=== PATIENT | female | born 1950 | race Two or more races ===

== ENCOUNTER → 2017-04-03 | Outpatient (CLI) | payer OTHER ==
[~2017-04-03] MED LIST: ALBUAER3 IN; ASPI81TA27 PO; CLO01T OR; HYDR25TA4 PO; LISI-646 PO; PANT40TA2 PO
[2017-04-03 08:52] LABS: DEFINITIVE VIEW TRANSMISSION; Hematocrit 39.4 % (36.0-46.0); Hemoglobin 12.4 g/dL (12.2-16.2); Mean Corpuscular Hemoglobin 24.1 pg (28.0-32.0); Mean Corpuscular Hgb Conc. 31.5 g/dL (32.0-36.0); Mean Corpuscular Volume 76.6 fL (80.0-100.0); Mean Platelet Volume 9.9 fL (7.4-10.4); Platelet Count (auto) 227 10^3/uL (140-450); Red Cell Distribution Width 15.1 % (11.6-16.0); White Blood Cell 11.4 10^3/uL (4.4-10.8)
[2017-04-03 09:02] LABS: Metamyelocytes % 0; Myelocytes % 0; Promyelocytes % 0; Reactive Lymphocytes 0
[2017-04-03 09:04] LABS: Urine Bilirubin Negative (Negative); Urine Blood Negative /uL (Negative); Urine Color Yellow (Yellow); Urine Glucose Normal (Normal); Urine Ketone Negative (Negative); Urine Nitrite Negative (Negative); Urine RBC 1 /hpf (0 - 4); Urine Squamous Epithelial Cell FEW /hpf (<5); Urine Urobilinogen Normal (Negative); Urine pH 5.5 (5.0-8.0)
[2017-04-03 09:16] LABS: Potassium 3.8 mmol/L (3.5-5.1)
[2017-04-03 09:20] LABS: Albumin 3.8 g/dL (3.4-5.0); Calcium 8.9 mg/dL (8.5-10.1); Magnesium 2.1 mg/dL (1.6-2.6)
[2017-04-03 09:33] LABS: Bilirubin, Total 0.6 mg/dL (0.2-1.0); Total Protein 8.6 g/dL (6.4-8.2)
[2017-04-03 10:09] LABS: Hypochromia Slight; Platelet Estimate Adequate
== END | disposition home or self-care (01) ==
LOC: LAB 06:57
PROVIDERS: ATTEND Internal Medicine
DX: I10 Essential (primary) hypertension (principal); K21.9 Gastro-esophageal reflux disease without esophagitis; J47.9 Bronchiectasis, uncomplicated
CPT/HCPCS: 36415; 80053; 80061; 81001; 82043; 82306; 83735; 84439; 84443; 85007; 85027; 85652

== ENCOUNTER → 2018-02-16 | Outpatient (CLI) | payer OTHER | END | disposition home or self-care (01) | LOC: LAB 07:47 | PROVIDERS: ATTEND Internal Medicine | DX: H93.12 Tinnitus, left ear (principal); I10 Essential (primary) hypertension | CPT/HCPCS: 36415; 82565; 84520 ==

== ENCOUNTER → 2018-08-15 | Outpatient (CLI) | payer OTHER ==
[2018-08-15 07:52] LABS: Basophils # (auto) 0.1 uL; Basophils % (auto) 0.8 % (0.0-2.0); Eosinophils # (auto) 0.7 uL; Eosinophils % (auto) 7.9 % (0.0-7.0); Hemoglobin 13.3 g/dL (12.2-16.2); Lymphocytes # (auto) 3.7 uL; Lymphocytes % (auto) 39.5 % (10.0-50.0); Mean Corpuscular Hemoglobin 23.9 pg (28.0-32.0); Mean Corpuscular Hgb Conc. 31.5 g/dL (32.0-36.0); Mean Corpuscular Volume 75.7 fL (80.0-100.0); Monocytes # (auto) 0.9 uL; Monocytes % (auto) 9.8 % (0.0-12.0); Neutrophils # (auto) 3.9 uL; Platelet Count (auto) 193 10^3/uL (140-450); Red Blood Cells 5.55 10^6/uL (4.0-5.20); Red Cell Distribution Width 14.7 % (11.8-14.3); White Blood Cell 9.4 10^3/uL (4.4-10.8)
[2018-08-15 08:00] LABS: Urine Bacteria MOD /hpf (None Seen); Urine Blood Negative /uL (Negative); Urine Hyaline Cast FEW /lpf (0 - 2); Urine WBC 3 /hpf (0 - 5)
[2018-08-15 08:10] LABS: Albumin 3.9 g/dL (3.4-5.0); BUN/Creatinine Ratio 15.1; Potassium 3.8 mmol/L (3.5-5.1)
[2018-08-15 08:16] LABS: Bilirubin, Total 0.6 mg/dL (0.2-1.0); Total Protein 9.1 g/dL (6.4-8.2)
== END | disposition home or self-care (01) ==
LOC: LAB 07:21
PROVIDERS: ATTEND Internal Medicine
DX: I10 Essential (primary) hypertension (principal); E03.9 Hypothyroidism, unspecified; J44.9 Chronic obstructive pulmonary disease, unspecified; R73.01 Impaired fasting glucose; M81.0 Age-related osteoporosis without current pathological fracture
CPT/HCPCS: 36415; 80053; 80061; 81001; 82043; 82306; 83036; 84439; 84443; 85025; 85652

== ENCOUNTER → 2018-12-26 | Outpatient (CLI) | payer OTHER ==
[2018-12-26 08:51] LABS: Albumin 3.9 g/dL (3.4-5.0); Calcium 8.3 mg/dL (8.5-10.1)
[2018-12-26 08:55] LABS: BUN/Creatinine Ratio 14.9; Bilirubin, Total 0.5 mg/dL (0.2-1.0); Total Protein 8.6 g/dL (6.4-8.2); Uric Acid 4.6 mg/dL (2.6-6.0)
== END | disposition home or self-care (01) ==
LOC: LAB 08:16
PROVIDERS: ATTEND Internal Medicine
DX: I12.9 Hypertensive chronic kidney disease with stage 1 through stage 4 chronic kidney disease, or unspecified chronic kidney disease (principal); N18.3 Chronic kidney disease, stage 3 (moderate)
CPT/HCPCS: 36415; 80053; 83970; 84550

== ENCOUNTER 2019-04-21 15:40 | Emergency (ER) | payer OTHER ==
[~2019-04-21] VITALS: Ht 149.9 cm; Wt 45.4 kg
[2019-04-21 16:18] LABS: Urine Bacteria MANY /hpf (None Seen); Urine Blood Negative /uL (Negative); Urine Hyaline Cast FEW /lpf (0 - 2); Urine Specific Gravity 1.021 (1.001-1.035); Urine WBC 20 /hpf (0 - 5)
[2019-04-21 16:33] LABS: Hematocrit 35.1 % (36.0-46.0); Mean Corpuscular Hemoglobin 23.4 pg (28.0-32.0); Mean Corpuscular Hgb Conc. 31.4 g/dL (32.0-36.0); Mean Corpuscular Volume 74.6 fL (80.0-100.0); Platelet Count (auto) 148 10^3/uL (140-450); Red Blood Cells 4.71 10^6/uL (4.0-5.20); Red Cell Distribution Width 15.1 % (11.8-14.3); White Blood Cell 15.5 10^3/uL (4.4-10.8)
[2019-04-21 16:40] LABS: Albumin 3.3 g/dL (3.4-5.0); Calcium 8.4 mg/dL (8.5-10.1); Potassium 3.3 mmol/L (3.5-5.1)
[2019-04-21 16:46] LABS: BUN/Creatinine Ratio 16.7; Bilirubin, Total 0.6 mg/dL (0.2-1.0); Total Protein 7.6 g/dL (6.4-8.2)
[2019-04-21 17:15] LABS: Basophils % (manual) 0 (0.0-2.0); Blast Cells 0; Eosinophils % (manual) 0 (0-7); Metamyelocytes % 0; Myelocytes % 0; Promyelocytes % 0; Reactive Lymphocytes 0
[2019-04-21] MEDS ORDERED: SODIUM CHLORIDE 0.9% 1,000 ML IV ONE (17:34)
[2019-04-21] MEDS ORDERED: ONDANSETRON HCL 4 MG/2 ML VIAL IV ONE (17:45)
[2019-04-21] MEDS: MORPHINE SULFATE 4 MG/ML SYR/VIAL IV PRN ×2 (18:20→23:04)
[2019-04-21] MEDS ORDERED: POTASSIUM EFFERVESENT TAB 25 MEQ PO ONE (18:30)
[2019-04-21] MEDS ORDERED: cefTRIAXone 1GM/50ML D5W 50 ML IV ONE (18:30)
[2019-04-21 19:22] LABS: Alcohol, Urine < 3.0 mg/dL (0-5); Amphetamine Screen, Urine NEGATIVE (NEGATIVE); Barbiturate Scree,Urine NEGATIVE (NEGATIVE); Benzodiazephine Screen, Urine NEGATIVE (NEGATIVE); Cannabinoid Screen, Urine NEGATIVE (NEGATIVE); Cocaine Screen, Urine NEGATIVE (NEGATIVE); Opiate Scree,Urine NEGATIVE (NEGATIVE); Phencyclidine Screen, Urine NEGATIVE (NEGATIVE)
[2019-04-21 21:20] LABS: Band Neutrophils % (manual) 3; Lymphocytes % (manual) 8 (10.0-50.0); Monocytes % (manual) 4 (0-12)
[2019-04-21 23:24] VITALS: BP 125/63
== END 2019-04-21 23:36 | disposition short-term general hospital (02) ==
LOC: ER 15:42
DX: S32.029A Unspecified fracture of second lumbar vertebra, initial encounter for closed fracture (principal); E87.6 Hypokalemia; E87.1 Hypo-osmolality and hyponatremia; I10 Essential (primary) hypertension; N39.0 Urinary tract infection, site not specified; E46 Unspecified protein-calorie malnutrition; J44.9 Chronic obstructive pulmonary disease, unspecified
CPT/HCPCS: 36415; 71046; 72100; 72131; 80053; 80307; 81001; 83735; 83880; 84484; 85007; 85027; 93005; 94761; 96361; 96365; 96366; 96375; 99285; J0696; J2270; J2405

== ENCOUNTER 2019-08-08 10:10 | Inpatient (IN) | payer OTHER, MEDICAID ==
[~2019-08-08] VITALS: Ht 157.5 cm; Wt 52.1 kg
[~2019-08-08 10:10] MED LIST changes: +ASPI-404 PO; -ASPI81TA27 PO; +DOX100T PO; +IBAN1TAB2; +LOSA-39
[2019-08-08] MEDS ORDERED: methylPREDNISolone SOD SUCC 125 MG/2 ML VL IV ONE (10:45)
[2019-08-08] MEDS ORDERED: ALBUTEROL SULF 2.5 MG/0.5ML(0.5%) NEB SOLN HHN ONE (10:45)
[2019-08-08] MEDS ORDERED: IPRATROPIUM BROM 0.5 MG/2.5ML INH SOL HHN ONE (10:45)
[2019-08-08 11:26] LABS: Hemoglobin 10.3 g/dL (12.2-16.2); Mean Corpuscular Hemoglobin 22.8 pg (28.0-32.0); Mean Corpuscular Hgb Conc. 31.6 g/dL (32.0-36.0); Red Blood Cells 4.51 10^6/uL (4.0-5.20)
[2019-08-08 11:28] LABS: Hematocrit 32.5 % (36.0-46.0); Platelet Count (auto) 315 10^3/uL (140-450); White Blood Cell 11.5 10^3/uL (4.4-10.8)
[2019-08-08 11:48] LABS: Potassium 3.4 mmol/L (3.5-5.1)
[2019-08-08 11:56] LABS: Basophils % (manual) 0 (0.0-2.0); Blast Cells 0; Metamyelocytes % 0; Myelocytes % 0; Promyelocytes % 0; Reactive Lymphocytes 0
[2019-08-08 11:59] LABS: Albumin 3.6 g/dL (3.4-5.0); BUN/Creatinine Ratio 17.6; Bilirubin, Total 0.4 mg/dL (0.2-1.0); Calcium 8.7 mg/dL (8.5-10.1); Magnesium 2.4 mg/dL (1.6-2.6); Total Protein 9.4 g/dL (6.4-8.2)
[2019-08-08 12:23] LABS: Band Neutrophils % (manual) 5; Eosinophils % (manual) 1 (0-7); Lymphocytes % (manual) 10 (10.0-50.0); Monocytes % (manual) 6 (0-12)
[2019-08-08] MEDS ORDERED: PROMETHAZINE HCL 25 MG/ML 1ML IV PRN (13:00)
[2019-08-08] MEDS ORDERED: MORPHINE SULFATE 4 MG/ML SYR/VIAL IV PRN (13:00)
[2019-08-08] MEDS ORDERED: DEXTROSE (50%) 50ML SYRG IV PRN (13:00)
[2019-08-08] MEDS ORDERED: NITROGLYCERIN 0.4 MG SL TAB SL PRN (13:00)
[2019-08-08] MEDS ORDERED: TEMAZEPAM 15 MG CAP PO PRN (13:00)
[2019-08-08] MEDS ORDERED: ACETAMINOPHEN 500 MG TAB PO PRN (13:00)
[2019-08-08] MEDS ORDERED: MORPHINE SULF INJ 2 MG/ML SYRINGE 1ML IV PRN (13:00)
[2019-08-08] MEDS ORDERED: LACTULOSE 20Gm/30ML SOLN PO PRN (13:00)
[2019-08-08] MEDS ORDERED: ALBUTEROL SULF 2.5 MG/0.5ML(0.5%) NEB SOLN NEB PRN (13:00)
[2019-08-08] MEDS ORDERED: HYDROcodone-ACET 5/325MG TAB PO PRN (13:00)
[2019-08-08] MEDS ORDERED: CLO01T PO ×2 (13:29)
[2019-08-08] MEDS ORDERED: CLON0.2T PO (13:29)
[2019-08-08] MEDS ORDERED: LEVO25TA6 PO (13:29)
[2019-08-08] MEDS ORDERED: AMLO10TA13 PO (13:29)
[2019-08-08] MEDS ORDERED: OMEP20TA PO (13:29)
[2019-08-08] MEDS ORDERED: CARVEDILOL 3.125 MG TAB PO ONE (13:30)
[2019-08-08] MEDS ORDERED: FUROSEMIDE 40 MG/4 ML VIAL IV ONE (13:30)
[2019-08-08] MEDS ORDERED: ENOXAPARIN SOD 40 MG/0.4 ML SYRINGE SC ONE (13:30)
[2019-08-08] MEDS ORDERED: POTASSIUM CHL 20 Meq TABLET PO ONE (13:30)
[2019-08-08] MEDS ORDERED: LEVOFLOXACIN 500MG 100 ML IV ONE (13:30)
[2019-08-08] MEDS ORDERED: POTASSIUM EFFERVESENT TAB 25 MEQ PO ONE (13:30)
[2019-08-08] MEDS ORDERED: ENALAPRIL MALEATE 2.5 MG TAB PO ONE (13:30)
[2019-08-08] MEDS ORDERED: ASPirin 81 mg TAB PO ONE (13:30)
[2019-08-08] MEDS ORDERED: methylPREDNISolone SOD SUCC 40 MG/ML VL IV ONE (13:30)
[2019-08-08] MEDS ORDERED: PANTOPRAZOLE 40 MG TAB PO ONE (13:30)
--- NOTE | 2019-08-08 13:52 | NUR ---
RECEIVED REPORT FROM CHERELLE POLANCO.
--- NOTE | 2019-08-08 14:30 | NUR ---
Telemetry admit from ER JON BRADY admitted to Telemetry unit after SBAR received. Patient oriented to MICHELLE MÉNDEZ, primary RN, unit, room, bed, and unit policies regarding patient care and visiting hours. Patient now on continuous telemetry monitoring, tele box # 75 and telemetry reading on arrival to unit is SINUS TACHYCARDIA AT 100. Patient placed on bedside oxygen, weighed by bedscale and encouraged to call if they need something. All questions and concerns addressed, patient verbalized understanding.
[2019-08-08] MEDS: SODIUM CHLOR 0.9% PF (SALINE LOCK) 10ML VIAL/SYR IV SCH ×4 (15:37→21:43)
[2019-08-08 17:16] VITALS: BP 140/68
[2019-08-08] MEDS: ACCU-CHEK COMFORT CURVE STRIP VI SCH ×2 (17:29→22:13)
[2019-08-08 17:37] VITALS: BP 140/68
[2019-08-08] MEDS: IPRATROPIUM BROM 0.5 MG/2.5ML INH SOL NEB SCH (17:43)
[2019-08-08] MEDS: ALBUTEROL SULF 2.5 MG/0.5ML(0.5%) NEB SOLN NEB SCH (17:43)
[2019-08-08] MEDS: methylPREDNISolone SOD SUCC 40 MG/ML VL IV SCH ×2 (18:25→23:54)
[2019-08-08 19:34] VITALS: BP 140/68
[2019-08-08] MEDS: CARVEDILOL 3.125 MG TAB PO SCH (21:42)
[2019-08-08 22:00] VITALS: BP 113/51
[2019-08-09] MEDS: IPRATROPIUM BROM 0.5 MG/2.5ML INH SOL NEB SCH ×4 (00:10→19:41)
[2019-08-09] MEDS: ALBUTEROL SULF 2.5 MG/0.5ML(0.5%) NEB SOLN NEB SCH ×4 (00:10→19:42)
[2019-08-09 05:24] VITALS: BP 114/53
[2019-08-09] MEDS: SODIUM CHLOR 0.9% PF (SALINE LOCK) 10ML VIAL/SYR IV SCH ×6 (06:00→21:34)
[2019-08-09] MEDS: methylPREDNISolone SOD SUCC 40 MG/ML VL IV SCH ×3 (06:30→18:43)
[2019-08-09 06:55] LABS: Eosinophils # (auto) 0 uL; Hemoglobin 9.4 g/dL (12.2-16.2)
[2019-08-09] MEDS: LEVOTHYROXINE SODIUM 25 MCG TAB PO SCH (06:59)
[2019-08-09] MEDS: ACCU-CHEK COMFORT CURVE STRIP VI SCH ×4 (07:00→22:11)
[2019-08-09 07:01] LABS: Basophils # (auto) 0.1 uL; Basophils % (auto) 1.2 % (0.0-2.0); Hematocrit 29.2 % (36.0-46.0); Lymphocytes # (auto) 0.7 uL; Lymphocytes % (auto) 9.3 % (10.0-50.0); Mean Corpuscular Hemoglobin 23.1 pg (28.0-32.0); Mean Corpuscular Hgb Conc. 32.1 g/dL (32.0-36.0); Mean Corpuscular Volume 71.8 fL (80.0-100.0); Monocytes # (auto) 0.3 uL; Monocytes % (auto) 3.8 % (0.0-12.0); Neutrophils # (auto) 6.4 uL; Neutrophils % (auto) 85.7 % (37.0-80.0); Nucleated Red Blood Cells % 0.1 %; Platelet Count (auto) 256 10^3/uL (140-450); Red Blood Cells 4.06 10^6/uL (4.0-5.20); White Blood Cell 7.5 10^3/uL (4.4-10.8)
[2019-08-09 07:11] LABS: Albumin 2.9 g/dL (3.4-5.0); Calcium 7.9 mg/dL (8.5-10.1); Potassium 4.9 mmol/L (3.5-5.1)
[2019-08-09 07:16] LABS: BUN/Creatinine Ratio 19.6; Bilirubin, Total 0.4 mg/dL (0.2-1.0); Total Protein 7.6 g/dL (6.4-8.2)
--- NOTE | 2019-08-09 08:00 | NUR ---
Opening Shift Note Assumed care of patient, awake, alert, and oriented. No S/S of distress/SOB or pain. Bed in low/locked position, bed rails up x2. Instructed on POC and to call for assist PRN with call light within reach. Will continue to monitor for changes Q1hr and PRN.
[2019-08-09] MEDS ORDERED: ADENOSINE 44 MG in GIVE UN-DILUTED 0 ML IV STA (08:39)
[2019-08-09 09:24] VITALS: BP 117/53
[2019-08-09] MEDS ORDERED: POTASSIUM CHL 20 Meq TABLET PO SCH (10:00)
[2019-08-09] MEDS ORDERED: FUROSEMIDE 40 MG/4 ML VIAL IV SCH (10:00)
[2019-08-09] MEDS ORDERED: ENALAPRIL MALEATE 2.5 MG TAB PO SCH (10:00)
[2019-08-09] MEDS: CARVEDILOL 3.125 MG TAB PO SCH ×2 (10:00→21:34)
[2019-08-09] MEDS: LEVOFLOXACIN 750MG 150 ML IV SCH (10:08)
[2019-08-09] MEDS: ASPirin 81 mg TAB PO SCH (10:09)
[2019-08-09] MEDS: amLODIPine BESYLATE 5 MG TAB PO SCH (10:10)
[2019-08-09] MEDS: PANTOPRAZOLE 40 MG TAB PO SCH (10:10)
[2019-08-09] MEDS: LISINOPRIL 20 MG TAB PO SCH (10:10)
[2019-08-09] MEDS: ENOXAPARIN SOD 40 MG/0.4 ML SYRINGE SC SCH (10:11)
--- NOTE | 2019-08-09 10:40 | NUR ---
MD ROUNDS DR MELO AT BEDSIDE DISCUSSING POC WITH APTIENT AND PRIMARY RN. ALL QUESTIONS/CONCERNS ANSWERED. NEW ORDERS RECEIVED/CARRIED OUT. WILL CONTINUE TO MONITOR
--- NOTE | 2019-08-09 11:22 | NUR ---
LAB INFLUENZA SWAB SENT TO LABORATORY
[2019-08-09 13:00] VITALS: BP 115/66
[2019-08-09 22:00] VITALS: BP 104/45
[2019-08-10] MEDS: methylPREDNISolone SOD SUCC 40 MG/ML VL IV SCH ×4 (00:26→23:06)
[2019-08-10] MEDS: IPRATROPIUM BROM 0.5 MG/2.5ML INH SOL NEB SCH ×4 (00:46→19:23)
[2019-08-10] MEDS: ALBUTEROL SULF 2.5 MG/0.5ML(0.5%) NEB SOLN NEB SCH ×4 (00:46→19:23)
[2019-08-10 05:00] VITALS: BP 121/67
[2019-08-10] MEDS: SODIUM CHLOR 0.9% PF (SALINE LOCK) 10ML VIAL/SYR IV SCH ×6 (06:06→23:07)
[2019-08-10] MEDS: LEVOTHYROXINE SODIUM 25 MCG TAB PO SCH (06:16)
[2019-08-10] MEDS: ACCU-CHEK COMFORT CURVE STRIP VI SCH ×4 (06:31→23:07)
--- NOTE | 2019-08-10 07:50 | NUR ---
Opening Shift Note Assumed care of patient, awake and alert. No S/S of distress/SOB or pain. Instructed on POC and to call for assist PRN, will continue to monitor for changes Q1hr and PRN.
[2019-08-10 08:30] VITALS: BP 106/46
[2019-08-10] MEDS: ENOXAPARIN SOD 40 MG/0.4 ML SYRINGE SC SCH (09:57)
[2019-08-10] MEDS: PANTOPRAZOLE 40 MG TAB PO SCH (09:57)
[2019-08-10] MEDS: ASPirin 81 mg TAB PO SCH (09:57)
[2019-08-10] MEDS: CARVEDILOL 3.125 MG TAB PO SCH ×2 (10:00→23:05)
[2019-08-10] MEDS: LISINOPRIL 20 MG TAB PO SCH (10:00)
[2019-08-10] MEDS: amLODIPine BESYLATE 5 MG TAB PO SCH (10:00)
--- NOTE | 2019-08-10 11:30 | NUR ---
Visitor at bedside.
[2019-08-10 12:30] VITALS: BP 122/61
[2019-08-10 16:56] VITALS: BP 119/53
--- NOTE | 2019-08-10 17:00 | NUR ---
PT Patient ambulating with physical therapist.
--- NOTE | 2019-08-10 19:23 | NUR ---
RT NOTE PT WAS SEEN BY RT FOR HHN TX. PT TOLERATES WELL VIA MASK. PT REQUESTS THAT HHN BE CLEANED PRIOR TO TX. NO ADVERSE REACTION NOTED. CONT ORDERED Addendum: 08/10/19 at 1926 by Thelma Hayes RT Amended: Links added.
[2019-08-10 22:00] VITALS: BP 116/63
--- NOTE | 2019-08-11 00:36 | NUR ---
RT NOTE PT WAS SEEN BY RT FOR HHN TX. PT TOLERATES WELL VIA MASK. CONT ORDERED Addendum: 08/11/19 at 0054 by Thelma Hayes RT Amended: Links added.
[2019-08-11] MEDS: ALBUTEROL SULF 2.5 MG/0.5ML(0.5%) NEB SOLN NEB SCH ×4 (00:41→19:08)
[2019-08-11] MEDS: IPRATROPIUM BROM 0.5 MG/2.5ML INH SOL NEB SCH ×4 (00:41→19:08)
[2019-08-11 05:00] VITALS: BP 133/64
[2019-08-11 05:55] LABS: BUN/Creatinine Ratio 29.9; Potassium 3.7 mmol/L (3.5-5.1)
[2019-08-11] MEDS: methylPREDNISolone SOD SUCC 40 MG/ML VL IV SCH ×2 (06:28→22:15)
[2019-08-11] MEDS: SODIUM CHLOR 0.9% PF (SALINE LOCK) 10ML VIAL/SYR IV SCH ×6 (06:28→22:00)
[2019-08-11] MEDS: LEVOTHYROXINE SODIUM 25 MCG TAB PO SCH (06:29)
[2019-08-11] MEDS: ACCU-CHEK COMFORT CURVE STRIP VI SCH ×4 (06:30→22:15)
[2019-08-11 08:30] VITALS: BP 122/71
--- NOTE | 2019-08-11 08:30 | NUR ---
OPENING NOTE ASSUMED CARE OF PT. AWAKE AND ALERT. NO S/S SOB/DISTRESS NOTED. SAFETY PRECAUTIONS IN PLACE. BED SET TO LOWEST POSITION/LOCKED, BEDSIDE RAILS UP X2, CALL LIGHT WITHIN REACH. INSTRUCTED PATIENT TO CALL FOR ASSISTANCE. . UPDATED ON POC. PT VERBALIZED UNDERSTANDING. WILL CONTINUE TO MONITOR Q1HR AND PRN.
--- NOTE | 2019-08-11 09:00 | NUR ---
ENDORSED CARE TO CHERELLE LUNDBERG.
--- NOTE | 2019-08-11 09:30 | NUR ---
OPENING NOTE ASSUMED CARE OF PATIENT. AWAKE,ALERT AND ORIENTED. NO S/S SOB/DISTRESS NOTED. SAFETY PRECAUTIONS IN PLACE. BED SET TO LOWEST POSITION BREAKS LOCKED, BEDSIDE RAILS UP X2, CALL LIGHT WITH IN REACH. INSTRUCTED PATIENT TO CALL FOR ASSISTANCE. UPDATED ON POC. PT VERBALIZED UNDERSTANDING. WILL CONTINUE TO MONITOR Q1HR AND PRN.
[2019-08-11] MEDS: LISINOPRIL 20 MG TAB PO SCH (10:00)
[2019-08-11] MEDS: PANTOPRAZOLE 40 MG TAB PO SCH (11:13)
[2019-08-11] MEDS: CARVEDILOL 3.125 MG TAB PO SCH ×2 (11:14→22:14)
[2019-08-11] MEDS: amLODIPine BESYLATE 5 MG TAB PO SCH (11:16)
[2019-08-11] MEDS: ASPirin 81 mg TAB PO SCH (11:17)
[2019-08-11] MEDS: ENOXAPARIN SOD 40 MG/0.4 ML SYRINGE SC SCH (11:17)
[2019-08-11] MEDS: LEVOFLOXACIN 750MG 150 ML IV SCH (11:19)
[2019-08-11 12:30] VITALS: BP_SYST 126; BP_SYST 131; BP_SYST 136; BP_DIAS 66; BP_DIAS 74; BP_DIAS 81
--- NOTE | 2019-08-11 12:45 | NUR ---
Nutrition Assessment Notes please see attached link for complete assessment Est. Needs BW 52 [id number] kcal (25-30 kcal/kgBW), 41-52 gms pro (0.8-1.0 gms/kgBW r/t elev RFT). Will continue to monitor pertinent labs and reassess nutrient need prn Addendum: 08/11/19 at [address] Amended: Links added.
--- NOTE | 2019-08-11 19:07 | NUR ---
OPENING NOTE ASSUMED CARE OF PATIENT. AWAKE,ALERT AND ORIENTED. NO S/S SOB/DISTRESS NOTED. SAFETY PRECAUTIONS IN PLACE. BED SET TO LOWEST POSITION BREAKS LOCKED, BEDSIDE RAILS UP X2, CALL LIGHT WITH IN REACH. INSTRUCTED PATIENT TO CALL FOR ASSISTANCE. UPDATED ON POC. PT VERBALIZED UNDERSTANDING. WILL CONTINUE TO MONITOR Q1HR AND PRN. Addendum: 08/11/19 at 1909 by TOÑO KIRK RN RN WRONG TIME
--- NOTE | 2019-08-11 19:30 | NUR ---
Opening Shift Note Assumed care of patient, alert and oriented x 4. No S/S of distress/SOB or pain. On 2L oxygen via nasal cannula, ambulatory with walker at bedside. Bed in lowest locked position, side rails up x 2, call light within reach. Instructed on POC and to call for assist PRN, will continue to monitor for changes Q1hr and PRN.
[2019-08-11 20:00] VITALS: BP 127/85
[2019-08-11 22:00] VITALS: BP 127/85
[2019-08-12] VITALS (7 sets, daily range): BP systolic 104–140; BP diastolic 54–76
[2019-08-12] MEDS: IPRATROPIUM BROM 0.5 MG/2.5ML INH SOL NEB SCH ×4 (00:55→22:07)
[2019-08-12] MEDS: ALBUTEROL SULF 2.5 MG/0.5ML(0.5%) NEB SOLN NEB SCH ×5 (00:55→22:07)
--- NOTE | 2019-08-12 00:55 | NUR ---
Respiratory note: PT REFUSED SCHED MED NEB TX. PT SHOWS NO S/S OF SOB OR RESPIRATORY DISTRESS. INFORMED PT TO CONTACT RESPIRATORY IF SHE CHANGES HER MIND. WILL CONTINUE TO MONITOR.
--- NOTE | 2019-08-12 02:15 | NUR ---
IV insertion for stress test IV access obtained, via clean sterile technique by inserting 20 gauge catheter at Lt wrist after 1 attempt. IV secured properly. No trauma to site. Patient tolerated well.
[2019-08-12 05:39] LABS: Basophils # (auto) 0.1 uL; Eosinophils # (auto) 0 uL; Eosinophils % (auto) 0.1 % (0.0-7.0); Mean Corpuscular Volume 72.6 fL (80.0-100.0); Monocytes # (auto) 0.4 uL; Neutrophils # (auto) 5.1 uL; Nucleated Red Blood Cells % 0.1 %
[2019-08-12 05:42] LABS: Basophils % (auto) 0.9 % (0.0-2.0); Hematocrit 33.8 % (36.0-46.0); Hemoglobin 10.3 g/dL (12.2-16.2); Lymphocytes # (auto) 0.4 uL; Mean Corpuscular Hemoglobin 22.2 pg (28.0-32.0); Mean Corpuscular Hgb Conc. 30.6 g/dL (32.0-36.0); Monocytes % (auto) 7.2 % (0.0-12.0); Neutrophils % (auto) 85.8 % (37.0-80.0); Platelet Count (auto) 261 10^3/uL (140-450); Red Blood Cells 4.65 10^6/uL (4.0-5.20); Red Cell Distribution Width 17.9 % (11.8-14.3)
[2019-08-12 05:48] LABS: BUN/Creatinine Ratio 33.3
[2019-08-12] MEDS: SODIUM CHLOR 0.9% PF (SALINE LOCK) 10ML VIAL/SYR IV SCH ×6 (06:00→21:32)
[2019-08-12] MEDS: LEVOTHYROXINE SODIUM 25 MCG TAB PO SCH (07:29)
[2019-08-12] MEDS: ACCU-CHEK COMFORT CURVE STRIP VI SCH ×4 (07:29→21:44)
--- NOTE | 2019-08-12 08:53 | NUR ---
Opening Shift Note Assumed care of patient, awake and alert. No S/S of distress/SOB or pain. Patient NPO for a stress test , no s/s of hyperglycemia or hypoglycemia noted. Instructed on POC and to call for assist PRN, will continue to monitor for changes Q1hr and PRN.
[2019-08-12] MEDS: ASPirin 81 mg TAB PO SCH (10:37)
[2019-08-12] MEDS: ENOXAPARIN SOD 40 MG/0.4 ML SYRINGE SC SCH (10:37)
[2019-08-12] MEDS: methylPREDNISolone SOD SUCC 40 MG/ML VL IV SCH (10:37)
[2019-08-12] MEDS: PANTOPRAZOLE 40 MG TAB PO SCH (10:37)
[2019-08-12] MEDS: CARVEDILOL 3.125 MG TAB PO SCH ×2 (10:40→21:45)
[2019-08-12] MEDS: amLODIPine BESYLATE 5 MG TAB PO SCH (10:40)
[2019-08-12] MEDS: LISINOPRIL 20 MG TAB PO SCH (10:41)
[2019-08-12] MEDS ORDERED: predniSONE 20 MG TAB PO ONE (13:00)
--- NOTE | 2019-08-12 14:28 | NUR ---
assessment Patient is a 69 year old female who is alert and oriented. Patients cognitive abilities are intact. Prior to admission patient lived home with a friend and functioned independently. Patient informed me she is able to care for her own ADLs. Per patient she is requesting resources for room and boards. [facility] will provide patient with resources. Patient informed me she is mad at her friend. Patient informed me she and friend got into an argument. Patient informed me she will move on the 3rd of next month. Patient is requesting a fww that folds. Patient informed me she has a fww for home use. Patients PCP is Dr Hernandez. I informed patient she has a right to speak to a social security benefits interviewer regarding all care. I informed patient she has a right to participate in any and all discharge planning. Patient does not have a POA and advanced directive. I have offered patient information on POA and advanced directives. I informed the patient the advantages and benefits of having an Advanced Directive. Patient verbalized understanding and agreed to discharge plan. Addendum: 08/13/19 at 1444 by Alma Rosa CABALLERO Amended: Links added.
--- NOTE | 2019-08-12 16:32 | NUR ---
D/C Planning Per consult for room and board. Per Alma Rosa Pt will be returning home with friend. Resources for Board and care in the [facility] where given to Pt at bedside ( [facility], [facility], [facility] , [facility] , [facility], and [facility]). Addendum: 08/12/19 at 1640 by RASHID ARDON Pt verbalize understanding d/c plan.
--- NOTE | 2019-08-12 19:30 | NUR ---
Opening Shift Note Assumed care of patient, awake and alert. No S/S of distress/SOB or pain. Walker within reach. Instructed on POC and to call for assist PRN. Patient verbalizes understanding. Will continue to monitor for changes Q1hr and PRN.
[2019-08-12] MEDS: BUDESONIDE (INHALATION) 0.5 MG/2 ML NEB NEB SCH (22:07)
--- NOTE | 2019-08-12 22:25 | NUR ---
PATIENT AMBULATES TO RESTROOM INDEPENDENTLY. WALKER AT BED SIDE, HOWEVER PATIENT STATES SHE ONLY USES WALKER FOR "WALKING FAR". PATIENT ENCOURAGED TO USE CALL LIGHT FOR ASSISTANCE NEEDED. PATIENT VERBALIZES UNDERSTANDING.
[2019-08-13 05:00] VITALS: BP 116/59
[2019-08-13] MEDS: SODIUM CHLOR 0.9% PF (SALINE LOCK) 10ML VIAL/SYR IV SCH ×4 (05:47→13:55)
[2019-08-13] MEDS: ACCU-CHEK COMFORT CURVE STRIP VI SCH ×2 (06:34→11:30)
[2019-08-13] MEDS: LEVOTHYROXINE SODIUM 25 MCG TAB PO SCH (06:34)
[2019-08-13] MEDS: ALBUTEROL SULF 2.5 MG/0.5ML(0.5%) NEB SOLN NEB SCH ×3 (06:54→13:31)
[2019-08-13] MEDS: IPRATROPIUM BROM 0.5 MG/2.5ML INH SOL NEB SCH ×2 (06:55→13:31)
[2019-08-13] MEDS: BUDESONIDE (INHALATION) 0.5 MG/2 ML NEB NEB SCH (06:55)
--- NOTE | 2019-08-13 07:55 | NUR ---
Patient sitting in bed, awake, oriented x4, no acute distress noted. Patient stated her friend Ondina will pick her up on discharge.
[2019-08-13 09:00] VITALS: BP 126/61
[2019-08-13] MEDS ORDERED: predniSONE 20 MG TAB PO SCH (10:00)
--- NOTE | 2019-08-13 10:18 | NUR ---
Dr. Torres came over. to discharge the patient today.
[2019-08-13] MEDS: amLODIPine BESYLATE 5 MG TAB PO SCH (10:21)
[2019-08-13] MEDS: PANTOPRAZOLE 40 MG TAB PO SCH (10:22)
[2019-08-13] MEDS: ASPirin 81 mg TAB PO SCH (10:23)
[2019-08-13] MEDS: CARVEDILOL 3.125 MG TAB PO SCH (10:24)
[2019-08-13] MEDS: LISINOPRIL 20 MG TAB PO SCH (10:25)
[2019-08-13 10:34] VITALS: BP 126/61
--- NOTE | 2019-08-13 12:28 | NUR ---
Dr. Torres called back. said the patient needs a walker before discharge, the Distribution Agent is waiting for it.
[2019-08-13 12:54] VITALS: BP 137/63
--- NOTE | 2019-08-13 13:15 | NUR ---
Paged the Retail Client Solutions Analyst.
--- NOTE | 2019-08-13 13:19 | NUR ---
Cancer Program Consultant Taylor Mckinney called back. Taylor to call the Cattyman regarding the walker before discharge as ordered by Dr. Torres.
--- NOTE | 2019-08-13 13:25 | NUR ---
Casino Floor Walker Taylor called back that the Aquatics Manager already requested the walker, to be delivered at bedside before discharge.
--- NOTE | 2019-08-13 13:32 | NUR ---
Respiratory note: PT REFUSING SCHEDULED MED NEB TX, STATES HE DOESN'T NEED IT AND THAT SHE IS GOING HOME. PT NOTED TO BE DRESSED SITTING IN BED WITH BELONGINGS PACKED. NO DISTRESS NOTED. HR 71 RR 16 SPO2 95% ON RA. PT AND RN AWARE TO HAVE RT PAGED IF NEEDED.
--- NOTE | 2019-08-13 14:52 | NUR ---
Stitchdown Thread Laster Alma Rosa called back. Alma Rosa said patient does not qualify for a new walker.
--- NOTE | 2019-08-13 14:54 | NUR ---
Paged Dr. Torres. Waiting for MD to call back.
--- NOTE | 2019-08-13 14:55 | NUR ---
Dr. Torres called back. is aware the patient did not qualify for a new walker. Dr. Torres ordered to discharge the patient.
--- NOTE | 2019-08-13 14:56 | NUR ---
Discharge instructions given as ordered. Encourage to follow up with PMD as instructed. All questions and concerns addressed. Patient verbalized understanding. Medication reconciliation form completed and copy given to patient. IV removed with catheter intact, pressure dressing applied. Telemetry unit returned to ICU. Patient is ambulatory, steady gait noted, refused to be taken to vehicle via wheelchair, patient with all personal belongings, accompanied by her friend Ondina. No distress noted at time of departure.
--- NOTE | 2019-08-13 17:10 | NUR ---
D/C Planning Per SS consult for FWW. Pt received a FWW on May 20 2019 and does not qualify for another one. Pt was informed at bedside. Pt stated she just wanted a new one. Advised Pt FWW is given one every 5 years and because she just recently received one we are unable to provide her with one. Pt verbalize understanding. Informed SS Oliveriorene
== END 2019-08-13 15:00 | disposition home or self-care (01) | DRG 189 ==
LOC: ER 10:10 → TELE-WESTW 10:11
PROVIDERS: ADMIT Internal Medicine; ATTEND Internal Medicine
DX: J96.01 Acute respiratory failure with hypoxia (principal); I21.4 Non-ST elevation (NSTEMI) myocardial infarction; J44.1 Chronic obstructive pulmonary disease with (acute) exacerbation; J45.901 Unspecified asthma with (acute) exacerbation; I50.9 Heart failure, unspecified; E78.5 Hyperlipidemia, unspecified; D64.9 Anemia, unspecified; E03.9 Hypothyroidism, unspecified; R73.9 Hyperglycemia, unspecified; I11.0 Hypertensive heart disease with heart failure; Z79.899 Other long term (current) drug therapy; Z87.442 Personal history of urinary calculi; Z79.82 Long term (current) use of aspirin; Z82.49 Family history of ischemic heart disease and other diseases of the circulatory system; Z87.891 Personal history of nicotine dependence; Z98.1 Arthrodesis status
CPT/HCPCS: 36415; 71045; 71046; 78452; 80048; 80053; 82550; 82962; 83036; 83605; 83735; 83880; 84443; 84484; 85007; 85025; 85027; 85379; 85652; 86141; 87040; 87804; 93005; 93017; 93306; 93970; 94640; 94644; 94761; 96374; 97116; 97163; 97530; G0378; J0153; J1956

== ENCOUNTER → 2019-10-14 | Outpatient (CLI) | payer OTHER, MEDICAID ==
[~2019-10-14] MED LIST changes: +AMLO10TA13 PO; -CLO01T OR; +CLO01T PO; +CLON0.2T PO; -DOX100T PO; -HYDR25TA4 PO; +LEVO25TA6 PO; -LISI-646 PO; +OMEP20TA PO; -PANT40TA2 PO
[2019-10-14 08:35] LABS: Hematocrit 34.7 % (36.0-46.0); Hemoglobin 10.7 g/dL (12.2-16.2); Mean Corpuscular Hemoglobin 21.9 pg (28.0-32.0); Mean Corpuscular Hgb Conc. 30.8 g/dL (32.0-36.0); Platelet Count (auto) 366 10^3/uL (140-450); Red Blood Cells 4.89 10^6/uL (4.0-5.20); White Blood Cell 9.2 10^3/uL (4.4-10.8)
[2019-10-14 08:40] LABS: Red Cell Distribution Width 20.1 % (11.8-14.3)
[2019-10-14 08:42] LABS: Band Neutrophils % (manual) 0; Basophils % (manual) 0 (0.0-2.0); Blast Cells 0; Metamyelocytes % 0; Myelocytes % 0; Promyelocytes % 0; Reactive Lymphocytes 0
[2019-10-14 09:06] LABS: Eosinophils % (manual) 6 (0-7); Lymphocytes % (manual) 52 (10.0-50.0); Monocytes % (manual) 2 (0-12)
[2019-10-14 09:39] LABS: Uric Acid 2.8 mg/dL (2.6-6.0)
[2019-10-15 14:58] LABS: Urine Bacteria FEW /hpf (None Seen); Urine Blood Negative /uL (Negative); Urine Specific Gravity 1.013 (1.001-1.035); Urine WBC 1 /hpf (0 - 5)
== END | disposition home or self-care (01) ==
LOC: LAB 08:04
PROVIDERS: ATTEND Internal Medicine
DX: I12.9 Hypertensive chronic kidney disease with stage 1 through stage 4 chronic kidney disease, or unspecified chronic kidney disease (principal); N18.3 Chronic kidney disease, stage 3 (moderate); M81.0 Age-related osteoporosis without current pathological fracture
CPT/HCPCS: 36415; 80061; 81001; 82043; 84439; 84443; 84550; 85007; 85027; 85652

== ENCOUNTER → 2019-11-20 | Outpatient (CLI) | payer OTHER, MEDICAID | END | disposition home or self-care (01) | LOC: LAB 13:02 | PROVIDERS: ATTEND Internal Medicine | DX: D64.9 Anemia, unspecified (principal) | CPT/HCPCS: 82270 ==

== ENCOUNTER → 2020-02-14 | Outpatient (CLI) | payer OTHER, MEDICAID ==
[2020-02-14 09:03] LABS: White Blood Cell 10.2 10^3/uL (4.4-10.8)
[2020-02-14 09:04] LABS: Hematocrit 36.6 % (36.0-46.0); Hemoglobin 11.7 g/dL (12.2-16.2); Mean Corpuscular Hemoglobin 23.9 pg (28.0-32.0); Mean Corpuscular Volume 74.9 fL (80.0-100.0); Platelet Count (auto) 319 10^3/uL (140-450); Red Blood Cells 4.88 10^6/uL (4.0-5.20); Red Cell Distribution Width 16.8 % (11.8-14.3)
[2020-02-14 09:20] LABS: Band Neutrophils % (manual) 0; Basophils % (manual) 0 (0.0-2.0); Blast Cells 0; Metamyelocytes % 0; Myelocytes % 0; Promyelocytes % 0; Reactive Lymphocytes 0
[2020-02-14 09:21] LABS: Albumin 3.8 g/dL (3.4-5.0); Potassium 3.9 mmol/L (3.5-5.1)
[2020-02-14 09:24] LABS: BUN/Creatinine Ratio 24.1; Bilirubin, Total 0.5 mg/dL (0.2-1.0); Total Protein 9.2 g/dL (6.4-8.2); Uric Acid 5.3 mg/dL (2.6-6.0)
[2020-02-14 09:51] LABS: Eosinophils % (manual) 10 (0-7); Lymphocytes % (manual) 32 (10.0-50.0); Monocytes % (manual) 9 (0-12)
== END | disposition home or self-care (01) ==
LOC: LAB 08:25
PROVIDERS: ATTEND Internal Medicine
DX: I10 Essential (primary) hypertension (principal); D64.9 Anemia, unspecified
CPT/HCPCS: 36415; 80053; 83540; 84439; 84443; 84550; 85007; 85027; 85652

== ENCOUNTER → 2020-08-07 | Outpatient (CLI) | payer OTHER, MEDICAID ==
[~2020-08-07] MED LIST changes: -ASPI-404 PO; +ASPI-543 PO
[2020-08-07 09:59] LABS: Basophils # (auto) 0.1 10 ^3/uL (0-0.2); Eosinophils # (auto) 1.1 10 ^3/uL (0-0.8); Hemoglobin 11.1 g/dL (12.2-16.2); Lymphocytes # (auto) 3.1 10 ^3/uL (0.4-5.4); Monocytes # (auto) 0.7 10 ^3/uL (0-1.3); Red Cell Distribution Width 16.8 % (11.8-14.3)
[2020-08-07 10:02] LABS: Basophils % (auto) 0.7 % (0.0-2.0); Eosinophils % (auto) 11.9 % (0.0-7.0); Hematocrit 35.8 % (36.0-46.0); Lymphocytes % (auto) 32.5 % (10.0-50.0); Mean Corpuscular Volume 74.2 fL (80.0-100.0); Monocytes % (auto) 7.8 % (0.0-12.0); Neutrophils # (auto) 4.5 10 ^3/uL (1.6-8.6); Neutrophils % (auto) 47.1 % (37.0-80.0); Nucleated Red Blood Cells % 0.1 %; Platelet Count (auto) 189 10^3/uL (140-450); Red Blood Cells 4.82 10^6/uL (4.0-5.20); White Blood Cell 9.5 10^3/uL (4.4-10.8)
[2020-08-07 10:03] LABS: Urine Bacteria MANY /hpf (None Seen); Urine Blood Negative /uL (Negative); Urine Mucus FEW (None Seen); Urine Specific Gravity 1.017 (1.001-1.035); Urine WBC 78 /hpf (0 - 5)
[2020-08-07 10:55] LABS: Albumin 3.5 g/dL (3.4-5.0); BUN/Creatinine Ratio 20.8; Calcium 9.1 mg/dL (8.5-10.1); Potassium 3.8 mmol/L (3.5-5.1); Uric Acid 5.3 mg/dL (2.6-6.0)
[2020-08-07 11:27] LABS: Bilirubin, Total 0.6 mg/dL (0.2-1.0); Total Protein 8.5 g/dL (6.4-8.2)
== END | disposition home or self-care (01) ==
LOC: LAB 09:40
PROVIDERS: ATTEND Internal Medicine
DX: I10 Essential (primary) hypertension (principal); M81.0 Age-related osteoporosis without current pathological fracture
CPT/HCPCS: 36415; 80053; 80061; 81001; 82306; 84439; 84443; 84550; 85025; 85652

== ENCOUNTER 2020-08-25 20:44 | Inpatient (IN) | payer OTHER, MEDICAID ==
[~2020-08-25] VITALS: Ht 157.5 cm; Wt 51.0 kg
[~2020-08-25 20:44] MED LIST changes: -IBAN1TAB2; +IBAN1TAB2 PO
[2020-08-25 21:30] LABS: White Blood Cell 10.7 10^3/uL (4.4-10.8)
[2020-08-25 21:32] LABS: Hematocrit 23.8 % (36.0-46.0); Hemoglobin 7.4 g/dL (12.2-16.2); Platelet Count (auto) 264 10^3/uL (140-450); Red Blood Cells 3.22 10^6/uL (4.0-5.20); Red Cell Distribution Width 16.4 % (11.8-14.3)
[2020-08-25 21:45] LABS: Albumin 3.2 g/dL (3.4-5.0); Anion Gap 9 (5-15); BUN/Creatinine Ratio 22.3; Blood Urea Nitrogen 29 mg/dL (7-18); Calcium 8.3 mg/dL (8.5-10.1); Carbon Dioxide 25 mmol/L (21-32); Chloride 106 mmol/L (98-107); GFR African American 52 mL/min; GFR Non-African American 43 mL/min; Glucose 93 mg/dL (74-106); Potassium 3.7 mmol/L (3.5-5.1); Sodium 140 mmol/L (136-145)
[2020-08-25] MEDS ORDERED: HYDROcodone-ACET 10/325MG TAB PO ONE (21:45)
[2020-08-25 21:48] LABS: Basophils % (manual) 0 (0.0-2.0); Blast Cells 0; Metamyelocytes % 0; Myelocytes % 0; Promyelocytes % 0; Reactive Lymphocytes 0
[2020-08-25 21:49] LABS: Alanine Aminotransferase 11 U/L (13-56); Alkaline Phosphatase 61 U/L (45-117); Aspartate Aminotransferase 12 U/L (15-37); Bilirubin, Total 0.2 mg/dL (0.2-1.0); Total Protein 8.1 g/dL (6.4-8.2)
[2020-08-25 22:22] LABS: Band Neutrophils % (manual) 2; Eosinophils % (manual) 20 (0-7); Lymphocytes % (manual) 18 (10.0-50.0); Monocytes % (manual) 13 (0-12)
[2020-08-26] MEDS ORDERED: ACETAMINOPHEN 325 MG TAB PO PRN (00:45)
[2020-08-26] MEDS ORDERED: NITROGLYCERIN 0.4 MG SL TAB SL PRN (00:45)
[2020-08-26] MEDS ORDERED: ONDANSETRON HCL 4 MG/2 ML VIAL IV PRN (00:45)
[2020-08-26] MEDS ORDERED: cloNIDine HCL 0.1 MG TAB PO PRN (00:45)
[2020-08-26] MEDS ORDERED: SODIUM CHLORIDE 0.9% 1,000 ML IV SCH (00:45)
[2020-08-26] MEDS ORDERED: TEMAZEPAM 15 MG CAP PO PRN (00:45)
[2020-08-26] MEDS ORDERED: MORPHINE SULF INJ 2 MG/ML SYRINGE 1ML IV PRN (00:45)
[2020-08-26] MEDS ORDERED: MORPHINE SULFATE 4 MG/ML SYR/VIAL IV PRN (00:45)
[2020-08-26] MEDS: SODIUM CHLORIDE 0.9% 1,000 ML IV SCH ×2 (00:59→14:48)
[2020-08-26 01:28] LABS: Hematocrit 23.1 % (36.0-46.0); Hemoglobin 7.2 g/dL (12.2-16.2)
[2020-08-26] MEDS: HYDROcodone-ACET 5/325MG TAB PO PRN ×2 (05:46→10:19)
[2020-08-26 08:02] LABS: BUN/Creatinine Ratio 28.6; Calcium 8.5 mg/dL (8.5-10.1); Potassium 3.9 mmol/L (3.5-5.1)
[2020-08-26] MEDS: PANTOPRAZOLE 40 MG TAB PO SCH (08:03)
[2020-08-26] MEDS: LEVOTHYROXINE SODIUM 25 MCG TAB PO SCH (08:03)
[2020-08-26] MEDS ORDERED: amLODIPine BESYLATE 5 MG TAB PO SCH (10:00)
[2020-08-26 10:28] LABS: % Iron Saturation 6.5 % (15-50)
[2020-08-26] MEDS: SODIUM FERR GLUC 62.5MG/5ML 125 MG in SODIUM CHL 0.9% 100 ML IV SCH (12:54)
[2020-08-26] MEDS ORDERED: DexAMETHasone INJECTION 10 MG in D5W 5% 50 ML IV ONE (15:45)
[2020-08-26] MEDS ORDERED: HYDROmorphone HCL 2 MG/ML VL IV ONE (15:45)
[2020-08-26] MEDS ORDERED: DexAMETHasone SOD PHOS 10MG/1ML VIAL INJ IV ONE (16:15)
--- NOTE | 2020-08-26 16:15 | NUR ---
Telemetry admit from ER JON BRADY admitted to Telemetry unit after SBAR received. Patient oriented to TOÑO KIRKRN primary RN, unit,290 room,b bed, and unit policies regarding patient care and visiting hours. Patient now on continuous telemetry monitoring, tele box #93 and telemetry reading on arrival to unit is sr 78. Patient placed on bedside oxygen, weighed by bedscale and encouraged to call if they need something. All questions and concerns addressed, patient verbalized understanding. Note:
--- NOTE | 2020-08-26 19:30 | NUR ---
Opening Shift Note Assumed care of patient, asleep and arousable to name. No S/S of distress/SOB or pain. Safety precaution in place, bed in lowest and locked position, call light within reach, bed alarm on, will continue to monitor for changes Q1hr and PRN.
[2020-08-26 19:32] VITALS: BP 114/51
[2020-08-26 20:00] VITALS: BP 134/69
[2020-08-26 22:00] VITALS: BP 134/69
[2020-08-27] VITALS (7 sets, daily range): BP systolic 99–133; BP diastolic 33–59
[2020-08-27] MEDS: LEVOTHYROXINE SODIUM 25 MCG TAB PO SCH (06:03)
[2020-08-27 06:12] LABS: Basophils # (auto) 0 10 ^3/uL (0-0.2); Basophils % (auto) 0.1 % (0.0-2.0); Eosinophils # (auto) 0 10 ^3/uL (0-0.8); Hematocrit 23.5 % (36.0-46.0); Hemoglobin 7.1 g/dL (12.2-16.2); Lymphocytes # (auto) 1.5 10 ^3/uL (0.4-5.4); Lymphocytes % (auto) 19.4 % (10.0-50.0); Mean Corpuscular Hemoglobin 22.7 pg (28.0-32.0); Mean Corpuscular Hgb Conc. 30.3 g/dL (32.0-36.0); Monocytes # (auto) 0.4 10 ^3/uL (0-1.3); Monocytes % (auto) 4.8 % (0.0-12.0); Neutrophils # (auto) 5.9 10 ^3/uL (1.6-8.6); Neutrophils % (auto) 75.7 % (37.0-80.0); Nucleated Red Blood Cells % 0.3 %; Platelet Count (auto) 253 10^3/uL (140-450); Red Blood Cells 3.13 10^6/uL (4.0-5.20); Red Cell Distribution Width 16.6 % (11.8-14.3); White Blood Cell 7.9 10^3/uL (4.4-10.8)
[2020-08-27] MEDS ORDERED: LACTULOSE 20Gm/30ML SOLN PO ONE (10:00)
[2020-08-27] MEDS: CARISOPRODOL 350 MG TAB PO PRN (10:40)
[2020-08-27] MEDS: PANTOPRAZOLE 40 MG TAB PO SCH (10:40)
[2020-08-27 11:02] LABS: Partial Thromboplastin Time 28.2 sec (23.0-31.2)
[2020-08-27] MEDS: SODIUM FERR GLUC 62.5MG/5ML 125 MG in SODIUM CHL 0.9% 100 ML IV SCH (12:42)
--- NOTE | 2020-08-27 19:10 | NUR ---
PATIENT STILL RECEIVING BLOOD TRANSFUSION, PATIENT AWAKE AND ALERT RESPIRATIONS ARE EVEN AND UNLABORED.NO S/S OF DISTRESS NOTED. CARE ENDORSED TO [facility] CHERELLE GALVIN.
--- NOTE | 2020-08-27 19:40 | NUR ---
Opening Shift Note Assumed care of patient, awake and alert. No S/S of distress/SOB or pain. Has an ongoing PRBC transfusion. Updated on POC and to call for assist PRN, patient verbalized understanding. Instructed to call as needed, bed in lowest position, call light within reach, will continue to monitor for changes Q1hr and PRN.
--- NOTE | 2020-08-27 20:00 | NUR ---
PRBC transfusion done, no BT reaction noted, will continue to monitor
[2020-08-27 21:20] LABS: Urine Bacteria MANY /hpf (None Seen); Urine Blood Negative /uL (Negative); Urine Mucus FEW (None Seen); Urine Specific Gravity 1.019 (1.001-1.035); Urine WBC 6 /hpf (0 - 5)
[2020-08-28 05:00] VITALS: BP 122/61
[2020-08-28] MEDS: LEVOTHYROXINE SODIUM 25 MCG TAB PO SCH (06:19)
[2020-08-28 06:41] LABS: Basophils # (auto) 0 10 ^3/uL (0-0.2); Eosinophils # (auto) 0.1 10 ^3/uL (0-0.8); Nucleated Red Blood Cells % 1.2 %; Red Cell Distribution Width 18.4 % (11.8-14.3); White Blood Cell 10.3 10^3/uL (4.4-10.8)
[2020-08-28 06:44] LABS: Basophils % (auto) 0.4 % (0.0-2.0); Eosinophils % (auto) 0.8 % (0.0-7.0); Hematocrit 26.4 % (36.0-46.0); Hemoglobin 8.3 g/dL (12.2-16.2); Lymphocytes # (auto) 2.9 10 ^3/uL (0.4-5.4); Lymphocytes % (auto) 28.2 % (10.0-50.0); Mean Corpuscular Hemoglobin 24.7 pg (28.0-32.0); Mean Corpuscular Hgb Conc. 31.6 g/dL (32.0-36.0); Monocytes # (auto) 1.3 10 ^3/uL (0-1.3); Neutrophils # (auto) 5.9 10 ^3/uL (1.6-8.6); Neutrophils % (auto) 57.6 % (37.0-80.0); Platelet Count (auto) 249 10^3/uL (140-450); Red Blood Cells 3.38 10^6/uL (4.0-5.20)
[2020-08-28 08:33] VITALS: BP 141/68
[2020-08-28] MEDS: PANTOPRAZOLE 40 MG TAB PO SCH (09:08)
[2020-08-28] MEDS ORDERED: LACTULOSE 20Gm/30ML SOLN PO PRN (10:45)
--- NOTE | 2020-08-28 10:45 | NUR ---
Dr. Hernandez at bed side
--- NOTE | 2020-08-28 11:20 | NUR ---
Dr. Ellis at bed side
[2020-08-28] MEDS: SODIUM FERR GLUC 62.5MG/5ML 125 MG in SODIUM CHL 0.9% 100 ML IV SCH (12:00)
[2020-08-28 13:00] VITALS: BP 140/92
--- NOTE | 2020-08-28 14:07 | NUR ---
Assessment This is a 78-year-old female, patient is alert and oriented. Patient cognitive abilities are intact. Patient stated that she ambulates with a walker, patient stated that she can do all ADLs independently. Patient stated that she is retired and receives social security benefits as income. Patient stated that she lives with her friend Mariel ([phone]). Patient stated that she will return home post discharge. Patient stated that she does not have transportation. Patient stated that her friend Mariel is her support systems. Patient is receptive to receive information on Advance Directive and POA forms. Discharge planning: will provide resource for patient on Advance Directive and POA forms. Patient has no post discharge needs identified. Addendum: 08/28/20 at 1453 by VIVI CABALLERO Amended: Links added.
--- NOTE | 2020-08-28 16:50 | NUR ---
Stool sample collected and sent to lab as per order
[2020-08-28 17:00] VITALS: BP 149/76
--- NOTE | 2020-08-28 19:23 | NUR ---
Opening Shift Note Assumed care of patient. Patient is awake, alert, and oriented X 4. No S/S of respiratory distress noted. Respirations are regular and non-labored on 2 LPM NC. Patient denies pain at this time. Bed in lowest locked position, side rails up X 2, call light is within reach. Both IVs are intact and patent. POC discussed and patient instructed to call for assistance as needed. Will continue to monitor for changes Q1hr and PRN.
[2020-08-28 20:00] VITALS: BP 137/67
[2020-08-28 22:00] VITALS: BP 137/67
[2020-08-29] VITALS (13 sets, daily range): BP systolic 96–199; BP diastolic 43–81
[2020-08-29] MEDS: MORPHINE SULF INJ 2 MG/ML SYRINGE 1ML IV PRN (03:50)
[2020-08-29] MEDS: LEVOTHYROXINE SODIUM 25 MCG TAB PO SCH (06:59)
--- NOTE | 2020-08-29 09:53 | NUR ---
Dr. Ellis at bed side
[2020-08-29] MEDS: PANTOPRAZOLE 40 MG TAB PO SCH (10:00)
--- NOTE | 2020-08-29 10:05 | NUR ---
Dr. Brianne Hernandez at bed side discussing POC with patient, Patient verbalizes understanding.
[2020-08-29] MEDS ORDERED: GOLYTELY 4L KIT PO ONE (10:15)
--- NOTE | 2020-08-29 10:39 | NUR ---
Run of AFIB (6 SECONDS) with RVR 160HR. Then back to SR 90BPM. Will notify
--- NOTE | 2020-08-29 10:44 | NUR ---
RE: Run of AFIB MD Ellis aware of short run of AFIB. Per MD HOLD morphine d/t "excessive sedation could cause this". Patient awake and alert, denies any sob/distress at this time. Will continue to monitor.
[2020-08-29] MEDS: SODIUM FERR GLUC 62.5MG/5ML 125 MG in SODIUM CHL 0.9% 100 ML IV SCH (12:00)
--- NOTE | 2020-08-29 12:04 | NUR ---
Nutrition Assessment Est energy needs 9432-3835 kcal (30-35 kcal/kg BW 50.9kg) Est protein needs 40-51g (0.8-1g/kg BW 50.9kg) Will reassess prn. Addendum: 08/29/20 at [address] Amended: Links added.
--- NOTE | 2020-08-29 17:15 | NUR ---
REGULATOR INSPECTOR Hospitalist paged d/t patient with increased wheezing and bilateral fine crackles. o2 saturations dropped to 85% on 2L, patient now on 3L saturating 92%. Patient also states new cough with excretion of secretions.
--- NOTE | 2020-08-29 17:41 | NUR ---
New orders obtained via telephone, read back and verified. Will implement. Refer to order hx.
[2020-08-29] MEDS ORDERED: ALBUTEROL SULF 2.5 MG/0.5ML(0.5%) NEB SOLN NEB PRN (17:45)
[2020-08-29] MEDS ORDERED: methylPREDNISolone SOD SUCC 40 MG/ML VL IV ONE (17:45)
[2020-08-29] MEDS: CARISOPRODOL 350 MG TAB PO PRN (17:50)
[2020-08-29] MEDS ORDERED: ALBUTEROL SULF 2.5 MG/0.5ML(0.5%) NEB SOLN ONE (17:52)
[2020-08-29] MEDS ORDERED: IPRATROPIUM BROM 0.5 MG/2.5ML INH SOL ONE (17:52)
--- NOTE | 2020-08-29 18:17 | NUR ---
RT at bed side
[2020-08-29] MEDS: ALBUTEROL SULF 2.5 MG/0.5ML(0.5%) NEB SOLN NEB SCH (18:25)
[2020-08-29] MEDS: IPRATROPIUM BROM 0.5 MG/2.5ML INH SOL NEB SCH (18:25)
--- NOTE | 2020-08-29 19:06 | NUR ---
Care endorsed to NOC CHERELLE Dempsey, patient resting in bed on 3L NC with oxygen saturation 93%, respirations are even/deep. SOB at rest noted. Patient states 4/10 back pain which is tolerable level, s/p medication administration. Refer to eMAR/Patient s/p breathing tx/solumedrol administration. STAT chest xray pending at this time. Call light within reach, bed alarm and all other safety precautions in place.
--- NOTE | 2020-08-29 19:07 | NUR ---
Opening Shift Note Assumed care of patient. Patient is awake and alert. Respirations are labored with retractions. Sat 94% on 3 LPM. RR 22 bpm. Patient denies pain at this time. Bed in lowest locked position, side rails up X 2, call light is within reach. Both IV are intact and patent. POC discussed and patient instructed to call for assistance as needed. Will continue to monitor for changes Q1hr and PRN.
--- NOTE | 2020-08-29 20:40 | NUR ---
Hospitalist Paged hospitalist regarding pt's current condition: labored respirations, changes in mental status and alertness, unstable SpO2 level, increase in O2 demand.
--- NOTE | 2020-08-29 20:45 | NUR ---
Hospitalist. Hospitalist called back. new order for ABGs received. Respiratory therapist paged.
--- NOTE | 2020-08-29 21:00 | NUR ---
ABGs ABGs result is pH 7.033, pO2 69, pCO2 138. Patient is not responsive to voice, shaking, and responsive to chest rub only. Eyes are closed, respirations are shallow and labored with severe accessory muscle use. Vitals taken BP 199/75 mmHg, HR 29 bpm, RR 24 bpm, T 98.9 F, SpO2 90% on 3 lpm. RT recommends intubation.
--- NOTE | 2020-08-29 21:02 | NUR ---
Hospitalist Hospitalist called an notified about ABGs result, pt's current status, and RT suggestions regarding intubation.
[2020-08-29] MEDS ORDERED: SUCCINYLCHOLINE CHLORIDE 20 MG/ML 10ML VIAL IV ONE ×2 (21:10)
[2020-08-29] MEDS ORDERED: ETOMIDATE (2MG/ML) 20ML VIAL IV ONE ×2 (21:10)
[2020-08-29] MEDS ORDERED: MIDAZOLAM DRIP 50 mg/50mL 50 ML IV ONE (21:17)
--- NOTE | 2020-08-29 21:17 | NUR ---
Patient was intubated at 21:15 with 8 Fr endotracheal tube 22 cm at lips. ICU and respiratory staff at bed side.
--- NOTE | 2020-08-29 21:20 | NUR ---
ASSUMED CARE OF 70 YR OLD FEMALE S/P INTUBATION HERE ON WEST WING 290B, ETT 8.0/22LIP FIO2 50% TV 500 AC 16 PEEP +5 PT RIDING VENT AT THIS TIME, BREATH SOUNDS CLEAR, PT EXPELLED LARGE LIG BROWN STOOL, APPARENTLY PT HAD BEEN COMSUMING GOLYTELY FOR SCHEDULED EGD AND COLONOSCOPY IN AM, INFORMED PRIMARY MEDSURG NURSE TO NOTIFY GI DOCTOR OF EVENTS INCLUDING FAMILY, BP 109/56 HR87 SA02 100%, AWAITING BED IN ICU
--- NOTE | 2020-08-29 21:40 | NUR ---
PT STARTING TO WAKE UP AND MOVING, VERSED DRIP STARTED AT 2MG/HR FOR SEDATION, ACCU CHECK DONE-172
[2020-08-29] MEDS ORDERED: ALBUTEROL SULF 2.5 MG/0.5ML(0.5%) NEB SOLN NEB ONE (21:45)
[2020-08-29] MEDS ORDERED: PANTOPRAZOLE 40 MG TAB PO SCH (22:00)
[2020-08-29] MEDS: D5W/SOD CHL 0.45% 1,000 ML IV SCH (22:00)
[2020-08-29] MEDS ORDERED: methylPREDNISolone SOD SUCC 40 MG/ML VL IV SCH (22:00)
--- NOTE | 2020-08-29 22:00 | NUR ---
BP 96/46 HR 95 RR 16 SAO2 100%
--- NOTE | 2020-08-29 22:10 | NUR ---
Called Brianne Lowry to inform about pt status. Pt schedule to have colonoscopy and EGD tomorrow. Left a message.
--- NOTE | 2020-08-29 22:30 | NUR ---
Received a call from Dr. Hernandez stating he will wait on EGD/Colonoscopy for now. Stated CARDIAC CATH LAB TECHNOLOGIST does NOT need to continue with Golytely at this time. CARDIAC CATH LAB TECHNOLOGIST Harika mcknight.
--- NOTE | 2020-08-29 22:35 | NUR ---
PT TRANSFERRED TO ICU 101 VIA BED, AUTOMOBILE SPRING REPAIRER AND TRANSPORT VENTILATOR WITHOUT INCIDENT
--- NOTE | 2020-08-29 22:35 | NUR ---
Called to pt's family/friend to inform about pt's current health status and change in physical condition. Spoke to Ondina Garcia.
--- NOTE | 2020-08-29 22:37 | NUR ---
Transfer Patient transferred to ICU bed 101. Report given to CHERELLE Shabazz.
--- NOTE | 2020-08-29 22:38 | NUR ---
Opening Shift Note Received pt at this time. Pt came in on 08/25/20 c/o lower back pain with a history of chronic back pain from a previous back surgery. Tonight, patient became unresponsive and an ABG was drawn. Pt was intubated due to abnormal ABG results and unresponsiveness in order to protect the airway. History obtained from chart and previous RN Rosana. Pt came to bed 101 at 2238 intubated with a size 8.0 ETT position 22 at the lip Ventilator settings AC16, vT 500, FIO2 40%, and peep of 5. Pt is lightly sedated on Versed 2mg. Pt grimacing, tense, rigid, protective body movements but tolerating ventilator. Will titrate sedation to reach RASS goal per hospital protocol. Pt has temperature of 101.8, cooling measures started with ice packs and cold rags. Singer catheter placed at this time. Yellow, cloudy urine draining. SCD's placed on the patient. OGT placed, placement auscultated, OGT patent. Awaiting CXR for placement confirmation. Bed is locked at lowest position, side rails are up. Will continue to monitor.
[2020-08-29] MEDS: MIDAZOLAM DRIP 50 mg/50mL 50 ML IV SCH (23:54)
[2020-08-30] VITALS (98 sets, daily range): BP systolic 101–171; BP diastolic 34–75
[2020-08-30] MEDS: ALBUTEROL SULF 2.5 MG/0.5ML(0.5%) NEB SOLN NEB SCH ×4 (00:11→18:15)
[2020-08-30] MEDS: IPRATROPIUM BROM 0.5 MG/2.5ML INH SOL NEB SCH ×4 (00:11→18:15)
[2020-08-30] MEDS: D5W/SOD CHL 0.45% 1,000 ML IV SCH (01:42)
--- NOTE | 2020-08-30 02:00 | NUR ---
Family Per Rosana previous RN, patient has no or children. The person that previous RN notified of patient's status is a friend Ondina Garcia phone number is . Per Ondina Wayne stated she didn't know patient was even in the hospital and she will call for an update in the morning.
[2020-08-30] MEDS: MIDAZOLAM DRIP 50 mg/50mL 50 ML IV SCH ×3 (03:25→18:09)
[2020-08-30 04:28] LABS: Hematocrit 25.5 % (36.0-46.0); Hemoglobin 8.1 g/dL (12.2-16.2); Mean Corpuscular Hemoglobin 24.7 pg (28.0-32.0); Mean Corpuscular Hgb Conc. 31.8 g/dL (32.0-36.0); Mean Corpuscular Volume 77.5 fL (80.0-100.0); Platelet Count (auto) 201 10^3/uL (140-450); Red Blood Cells 3.29 10^6/uL (4.0-5.20); Red Cell Distribution Width 18.2 % (11.8-14.3)
[2020-08-30 04:36] LABS: Basophils % (manual) 0 (0.0-2.0); Blast Cells 0; Eosinophils % (manual) 0 (0-7); Metamyelocytes % 0; Promyelocytes % 0; Reactive Lymphocytes 0
[2020-08-30 04:51] LABS: Potassium 3.5 mmol/L (3.5-5.1)
[2020-08-30 04:55] LABS: Albumin 2.5 g/dL (3.4-5.0); BUN/Creatinine Ratio 21.5
[2020-08-30 04:58] LABS: Bilirubin, Total 0.3 mg/dL (0.2-1.0); Total Protein 6.6 g/dL (6.4-8.2)
[2020-08-30 05:51] LABS: Band Neutrophils % (manual) 7; Lymphocytes % (manual) 12 (10.0-50.0); Monocytes % (manual) 4 (0-12); Myelocytes % 1
[2020-08-30] MEDS ORDERED: GOLYTELY 4L KIT PO ONE (06:00)
--- NOTE | 2020-08-30 06:45 | NUR ---
Belongings placed in drawer at bedside Yellow right taken off of finger labeled, and placed in small biohazard bag at bedside. Pt personal walker labeled and placed at bedside. Dentures labeled, placed in denture cup, and placed at bedside.
--- NOTE | 2020-08-30 07:00 | NUR ---
REPORT RECEIVED FROM MACHINE SCALLOP CUTTER NURSE. PATIENT RESTING IN BED INTUBATED AND SEDATED. RESPIRATIONS EVEN AND UNLABORED. NO SIGNS OF ACUTE DISTRESS NOTED. BED IN LOW POSITION, WILL CONTINUE TO MONITOR.
[2020-08-30] MEDS: LEVOTHYROXINE SODIUM 25 MCG TAB PO SCH (07:10)
--- NOTE | 2020-08-30 08:15 | NUR ---
DR Brianne MOSQUERA ON UNIT TO DISCUSS PLAN OF CARE. PER MD INCREASE PATIENTS SOLUMEDROL TO 80MOBID IVP, CONSULT DR CHOWDHURY FOR PULMONARY CONSULT. PER MD CHECK ON COVID SWAB STATUS THAT WAS ORDERED YESTERDAY. ALL ORDERS NOTED IN CHART.
--- NOTE | 2020-08-30 09:15 | NUR ---
DR CUTLER AT BEDSIDE TO ASSESS PATIENT AND DISCUSS PLAN OF CARE. PER WILL HOLD EGD AT THIS TIME. Addendum: 08/30/20 at [address] Torrie Bo RN DR LOTT
[2020-08-30] MEDS ORDERED: PANTOPRAZOLE 40 MG/10 ML VIAL INJ IV ONE ×2 (11:19→11:30)
--- NOTE | 2020-08-30 11:55 | NUR ---
WOUND CARE NOTE: PATIENT ADDED TO SKIN INTEGRITY MONITORING D/T LOW MURRAY SCORE 10, INTUBATION STATUS. PATIENT WAS ADMITTED TO [facility] WITH DIAGNOSIS OF WEDGE COMPRESSION FRACTURE, # 2 LUMBAR VERTEBRA, ACUTRE KIDNEY FAILURE. SHE TESTED POSITIVE FOR COVID 19, AND WAS PLACED IN AIRBORNE ISOLATION. PATIENT HAS BEEN INTUBATED, SEDATED. SHE IS WOUND FREE AT THIS TIME. SKIN/WOUND CARE PLAN IMPLEMENTED. RECOMMEND: FREQUENT TURN SCHEDULE Q 2 HOURS, PRN CONDITION PERMITS, WITH PRESSURE REDISTRIBUTION USING PILLOWS/WEDGES, BID/PRN APPLICATION WITH MOISTURE BARRIER CREAM, OPTIFOAM GENTLE SACRAL DRESSING PREVENTATIVE, ICU LOW AIRLOSS BED, SKIN/WOUND CARE PLAN, DIETARY CONSULT FOR INTUBATION STATUS, CONTINUED MONITORING BY WOUND CARE TEAM.
[2020-08-30] MEDS: SODIUM FERR GLUC 62.5MG/5ML 125 MG in SODIUM CHL 0.9% 100 ML IV SCH (11:56)
[2020-08-30] MEDS: methylPREDNISolone SOD SUCC 40 MG/ML VL IV SCH ×2 (11:57→22:24)
[2020-08-30] MEDS: LINEZOLID 600MG/300ML 300 ML IV SCH ×2 (11:57→20:00)
--- NOTE | 2020-08-30 13:00 | NUR ---
SPOKE TO DR Brianne MOSQUERA TO INFORM OF POSITIVE COVID TEST. PER MD CALL DR BERGERON FOR COVID TREATMENTS PER MD HE WILL INFORM DR BERGERON TO CALL NURSING STAFF FOR ORDERS.
--- NOTE | 2020-08-30 14:07 | NUR ---
SPOKE TO DR BERGERON TO INFORM OF PATIENTS COVID POSITIVE TEST. ALL ORDERS NOTED IN CHART.
[2020-08-30] MEDS ORDERED: ACETAMINOPHEN 500 MG TAB PO PRN (14:15)
[2020-08-30] MEDS: PIPERACILLIN-TAZOB 3.375GM 100 ML IV SCH ×2 (15:00→22:24)
--- NOTE | 2020-08-30 15:07 | NUR ---
SPOKE TO DR CHOWDHURY AND REVIEWED PATIENT ABG AND VENTILATOR SETTINGS. PER MD START PATIENT ON REMDESIVIR. SPOKE TO PHARMACY ABOUT MD ORDER. PER PHARMACY NEED CONSENT SIGNED AND THEN WILL PLACE ORDER. WILL WAIT FOR DOUBLE DR CONSENT THERE IS NO LEGAL NEXT OF KIN OR POA FOR PATIENT.
--- NOTE | 2020-08-30 16:03 | NUR ---
UPDATED PATIENTS LISTED NEXT OF SHARRIYvette JOAQUÍN WHO STATES SHE IS THE PATIENTS FRIEND WHO CARED FOR HER WHEN SHE HAD BACK SX. PER DANN PATIENT HAS NO LIVING FAMILY AND RENTS A ROOM FROM A FAMILY. PASSWORD MADE WITH DANN WHICH IS HER NAME DANN. UPDATED ON PATIENT STATUS. ALL QUESTIONS AND CONCERNS ADDRESSED AT THIS TIME.
[2020-08-31] VITALS (96 sets, daily range): BP systolic 95–155; BP diastolic 37–68
[2020-08-31] MEDS: ALBUTEROL SULF 2.5 MG/0.5ML(0.5%) NEB SOLN NEB SCH ×4 (00:15→21:49)
[2020-08-31] MEDS: IPRATROPIUM BROM 0.5 MG/2.5ML INH SOL NEB SCH ×4 (00:15→21:49)
[2020-08-31] MEDS: MIDAZOLAM DRIP 50 mg/50mL 50 ML IV SCH ×2 (00:16→20:47)
[2020-08-31] MEDS: D5W/SOD CHL 0.45% 1,000 ML IV SCH (00:40)
[2020-08-31 05:03] LABS: INR 0.97 (0.9-1.15)
[2020-08-31 05:09] LABS: Albumin 2.4 g/dL (3.4-5.0); Calcium 7.8 mg/dL (8.5-10.1); Magnesium 1.9 mg/dL (1.6-2.6)
[2020-08-31 05:10] LABS: Lactic Acid w/Reflex 3.9 mmol/L (0.4-2.0)
[2020-08-31 05:18] LABS: BUN/Creatinine Ratio 17.3; Bilirubin, Total 0.2 mg/dL (0.2-1.0); CRP High Sensitivity 3.32 mg/dL (< 0.3); Total Protein 6.2 g/dL (6.4-8.2)
[2020-08-31] MEDS: PIPERACILLIN-TAZOB 3.375GM 100 ML IV SCH (06:00)
[2020-08-31] MEDS: LEVOTHYROXINE SODIUM 25 MCG TAB PO SCH (06:30)
[2020-08-31] MEDS ORDERED: UMEC1AER INH (07:55)
[2020-08-31] MEDS: LINEZOLID 600MG/300ML 300 ML IV SCH (07:58)
[2020-08-31] MEDS ORDERED: POTASSIUM EFFERVESENT TAB 25 MEQ GT ONE ×2 (09:45→13:30)
[2020-08-31] MEDS ORDERED: AZITHROMYCIN 500MG/ 250ML 250 ML IV SCH (10:00)
[2020-08-31] MEDS: DOXYCYCLINE 100MG/250ML 250 ML IV SCH ×2 (10:30→21:30)
[2020-08-31] MEDS: DexAMETHasone SOD PHOS 10MG/1ML VIAL INJ IV SCH (10:31)
[2020-08-31] MEDS: PANTOPRAZOLE 40 MG/10 ML VIAL INJ IV SCH (10:31)
[2020-08-31] MEDS: ZINC SULFATE 220mg CAP or TAB PO SCH (10:31)
[2020-08-31] MEDS: ASCORBIC ACID 1,000 MG TAB PO SCH (10:31)
[2020-08-31] MEDS: CHOLECALCIFEROL (VITD3) 2,000 UNIT CAP PO SCH (10:32)
--- NOTE | 2020-08-31 11:26 | NUR ---
Nutrition Followup Note Wt: 51.3 kg Pt is intubated 08/29, sedated, in isolation now for COVID. pt is currently NPO with no new diet orders. Est energy needs 5518-0349 kcal (30-35 kcal/kg BW 50.9kg) Est protein needs 40-51g (0.8-1g/kg BW 50.9kg) Will reassess prn. Labs: CREAT 1.04 H CA 7.8 L ALB 2.9 L, GLU 234 H BM: Pt had 1 BM 08/29 per RN note Skin: BS 10 high risk, full details in inspector health care facilities note. PES: Altered nutrition related lab values r.t current chronic medical condition aeb elev creat hypocalcemia, hyperglycemia Comments: Will continue to monitor NPO status, skin status. F/u high 2-3 days Rec: 1) Consider EN support with Jevity 1.2 @ 60 ml/hr per MD approval. 2) Advance diet as medically feasible 4) Refer to CDE on DC 5) Continue current plan of care
[2020-08-31] MEDS: SODIUM FERR GLUC 62.5MG/5ML 125 MG in SODIUM CHL 0.9% 100 ML IV SCH (12:13)
[2020-08-31] MEDS ORDERED: FUROSEMIDE 40 MG/4 ML VIAL IV ONE (13:30)
[2020-08-31] MEDS ORDERED: REMDESIVIR 200 MG in NS 210ml LOADING DOSE ADULT IV ONE (17:00)
--- NOTE | 2020-08-31 17:49 | NUR ---
1 UNIT OF CONVALESCENT PLASMA STARTED.
--- NOTE | 2020-08-31 18:44 | NUR ---
I UNIT OF CONVALESCENT PLASMA FINISHED. PATIENT TOLERATED WELL. NO ADVERSE REACTION NOTED.
[2020-09-01] VITALS (63 sets, daily range): BP systolic 102–177; BP diastolic 37–70
[2020-09-01] MEDS: MIDAZOLAM DRIP 50 mg/50mL 50 ML IV SCH ×3 (02:08→21:35)
[2020-09-01 04:21] LABS: Hemoglobin 8.9 g/dL (12.2-16.2); Mean Corpuscular Hemoglobin 24.2 pg (28.0-32.0); Mean Corpuscular Hgb Conc. 31.8 g/dL (32.0-36.0); Mean Corpuscular Volume 76.2 fL (80.0-100.0); Platelet Count (auto) 214 10^3/uL (140-450); Red Blood Cells 3.67 10^6/uL (4.0-5.20); Red Cell Distribution Width 18.8 % (11.8-14.3)
[2020-09-01 04:27] LABS: Band Neutrophils % (manual) 0; Basophils % (manual) 0 (0.0-2.0); Blast Cells 0; Eosinophils % (manual) 0 (0-7); Metamyelocytes % 0; Myelocytes % 0; Promyelocytes % 0; Reactive Lymphocytes 0
[2020-09-01 04:42] LABS: Potassium 3.8 mmol/L (3.5-5.1)
[2020-09-01 04:49] LABS: Albumin 2.5 g/dL (3.4-5.0); BUN/Creatinine Ratio 20.2; Bilirubin, Total 0.3 mg/dL (0.2-1.0); Total Protein 6.7 g/dL (6.4-8.2)
[2020-09-01 05:46] LABS: Lymphocytes % (manual) 15 (10.0-50.0); Monocytes % (manual) 6 (0-12)
[2020-09-01] MEDS: IPRATROPIUM BROM 0.5 MG/2.5ML INH SOL NEB SCH ×3 (06:41→22:03)
[2020-09-01] MEDS: ALBUTEROL SULF 2.5 MG/0.5ML(0.5%) NEB SOLN NEB SCH ×3 (06:42→22:03)
--- NOTE | 2020-09-01 07:00 | NUR ---
Respiratory note: RECEIVED PATIENT ON V12 V200 VENT ORALLY INTUBATED WITH AN 8.0 ETT SECURED VIA ADELA AT THE 22 CM MARKING AT THE LIP, AND MECHANICALLY VENTILATED WITH THE CHARTED SETTINGS. SPO2 95%, LUNG SOUNDS DIM T/O, NO SECRETIONS WHEN SUCTIONED. SKIN IS WARM/DRY TO THE TOUCH AND IS INTACT NEAR ADELA SITE. THERE IS AN OGT IN PLACE AND IT IS SECURED TO THE ETT. AM CXR ASSESSED AND IT SHOWS ETT IN SATISFACTORY POSITION SITTING APPROX 2.7CM ABOVE THE CHUCHO; NO INDICATION TO ADJUST TUBE. PATIENT IS UNRESPONSIVE TO BOTH VERBAL/TACTILE STIMULI AND IS SEDATED ON A VERSED DRIP. SHE IS RESTING COMFORTABLY AND TOLERATING VENT WELL, NO CHANGES MADE. VENT PLUGGED INTO RED OUTLET AND ALL ALARMS ARE SET AND AUDIBLE. WILL CONTINUE TO ASSESS PATIENT WELL VENTILATOR FUNCTION. [employer] RUN INLINE.
--- NOTE | 2020-09-01 07:00 | NUR ---
Received report from yarelis VILLARREAL Patient is COVID 19 positive, in airbornne/contact isolation. Patient on mechanical ventilator, AC 16 FIo2 30% TV 500 PEEP 5. SPO2 96% . On versed 6 mg, patient easily arousable. Scant ETT secretions, clear. Oral scant, clear. Lung sounds clears. NSR 83 BP 119/58 RR 18 Temp 98.7 axillary. Singer catheter to gravity, clear yellow urine, active bowel sounds, NPO at this time. IV acces PIV left wrist 22g PIV right wrist 20g. Patient calm, no signs of distress. Will continue to monitor.
--- NOTE | 2020-09-01 07:30 | NUR ---
Initial Contact Patient turned, oral care completed.
[2020-09-01] MEDS: DexAMETHasone SOD PHOS 10MG/1ML VIAL INJ IV SCH (09:43)
[2020-09-01] MEDS: DOXYCYCLINE 100MG/250ML 250 ML IV SCH ×2 (09:43→21:14)
[2020-09-01] MEDS: LEVOTHYROXINE SODIUM 25 MCG TAB PO SCH (09:43)
[2020-09-01] MEDS: PANTOPRAZOLE 40 MG/10 ML VIAL INJ IV SCH (09:44)
[2020-09-01] MEDS: ZINC SULFATE 220mg CAP or TAB PO SCH (09:44)
[2020-09-01] MEDS: ASCORBIC ACID 1,000 MG TAB PO SCH (09:44)
[2020-09-01] MEDS: CHOLECALCIFEROL (VITD3) 2,000 UNIT CAP PO SCH (09:44)
--- NOTE | 2020-09-01 10:05 | NUR ---
RN bedside Oral care completed, patient repositioned.
--- NOTE | 2020-09-01 10:54 | NUR ---
Wound CHERELLE Van for initial wound pictures and care. Will return to complete panus wet/dry. Addendum: 09/01/20 at 1055 by Sudarshan Pappas RN WRONG PATIENT
--- NOTE | 2020-09-01 11:29 | NUR ---
Dr. Torres bedside Updated on status. Patient was diuresed 08/31/20 and is still maintaining her blood pressure. New order for Lasix and albumin then to CPAP patient in afternoon.
[2020-09-01] MEDS ORDERED: POTASSIUM EFFERVESENT TAB 25 MEQ GT ONE (11:30)
[2020-09-01] MEDS ORDERED: FUROSEMIDE 40 MG/4 ML VIAL IV ONE (11:30)
[2020-09-01] MEDS ORDERED: ALBUMIN 25% 100 ML IV ONE (11:30)
[2020-09-01 12:31] LABS: Phosphorus 2.2 mg/dL (2.5-4.90)
[2020-09-01] MEDS ORDERED: SODIUM PHOSPHATES 24 MEQ in SODIUM CHL 0.9% 100 ML IV ONE (13:15)
[2020-09-01] MEDS: SODIUM FERR GLUC 62.5MG/5ML 125 MG in SODIUM CHL 0.9% 100 ML IV SCH (13:37)
--- NOTE | 2020-09-01 14:00 | NUR ---
RN bedside Patient repositioned, oral care, hygiene.
--- NOTE | 2020-09-01 15:30 | NUR ---
RN bedside Oral care and patient repositioned.
--- NOTE | 2020-09-01 15:41 | NUR ---
RN waiting for PHARM Schedule niki Cunningham waiting for pharmacy to make up.
[2020-09-01] MEDS: REMDESIVIR 100mg in NS 230ml DAILYx4DAYS (NO VENT) IV SCH (16:38)
--- NOTE | 2020-09-01 18:00 | NUR ---
RN bedside Oral care and patient repositioned.
--- NOTE | 2020-09-01 18:15 | NUR ---
END OF SHIFT Patient diuresed again today with 2200 ml urine output by end of shift. Plan is to CPAP tonight if possible since patient has diuresed. Patient on same vent settings AC 16 TV 500 PEEP 5 FIO2 30%. Lung sounds clear and diminshed at bases. ETT secretions scant and clear, oral secretions same. SPO2 98% , RR 178. Moves all extremities, opens eyes spontaneously, patient needs mittens on hands. In NSR HR 58-71 BP SYS 110-120's, Active bowel sounds, no BM, patient NPO. Singer catheter to gravity, clear yellow urine. Skin intact. PIV x2 are fragile and may need to be replaced. Patient received Remdesivir today.
--- NOTE | 2020-09-01 19:45 | NUR ---
OPENING NOTE REPORT RECEIVED FROM KD RN. THIS IS A POSITIVE COVID PATIENT ON RESPIRATORY ISOLATION. PATIENT IS ORALLY INTUBATED AND SEDATED ON 8ML/HR OF VERSED. PATIENT IS LIGHTLY SEDATED, OPENS EYES BUT DOES NOT TRACK. SHE IS ABLE TO MOVE ALL EXTREMITIES. PUPILS ARE 3 AND SLUGGISH. POSITIVE COUGH AND GAG REFLEX. ETT 8.0, 22 @THE LIP. VENT SETTINGS: AC RATE 16, FIO2 30%, PEEP 5, TV 400. OGT IN PLACE. NO FEEDINGS ORDERED AT THIS TIME. STRANGE DRAINING TO GRAVITY. NO BM TODAY PER KD RN. SCD'S ON BILATERAL LEGS. NO SKIN INTEGRITY ISSUES AT THIS TIME. OPTIFOAM TO SACRUM PREVENTATIVE. TWO PERIPHERAL IV LINES: RIGHT WRIST 20G, AND LEFT WRIST 22G BOTH INTACT AND PATENT.
[2020-09-02] VITALS (83 sets, daily range): BP systolic 113–179; BP diastolic 37–108
[2020-09-02] MEDS: MIDAZOLAM DRIP 50 mg/50mL 50 ML IV SCH (02:14)
[2020-09-02 04:14] LABS: Basophils # (auto) 0 10 ^3/uL (0-0.2); Basophils % (auto) 0.2 % (0.0-2.0); Eosinophils # (auto) 0 10 ^3/uL (0-0.8); Hemoglobin 8.9 g/dL (12.2-16.2); Mean Corpuscular Volume 76.5 fL (80.0-100.0); Nucleated Red Blood Cells % 0.1 %; Red Cell Distribution Width 19.4 % (11.8-14.3)
[2020-09-02 04:16] LABS: Hematocrit 28.1 % (36.0-46.0); Lymphocytes # (auto) 0.9 10 ^3/uL (0.4-5.4); Lymphocytes % (auto) 4.4 % (10.0-50.0); Mean Corpuscular Hemoglobin 24.2 pg (28.0-32.0); Mean Corpuscular Hgb Conc. 31.6 g/dL (32.0-36.0); Monocytes # (auto) 0.9 10 ^3/uL (0-1.3); Monocytes % (auto) 4.3 % (0.0-12.0); Neutrophils # (auto) 18.5 10 ^3/uL (1.6-8.6); Neutrophils % (auto) 91.1 % (37.0-80.0); Platelet Count (auto) 180 10^3/uL (140-450); Red Blood Cells 3.67 10^6/uL (4.0-5.20); White Blood Cell 20.3 10^3/uL (4.4-10.8)
[2020-09-02 04:27] LABS: Potassium 3.5 mmol/L (3.5-5.1)
[2020-09-02 04:38] LABS: Albumin 2.8 g/dL (3.4-5.0); Bilirubin, Total 0.4 mg/dL (0.2-1.0); Total Protein 6.8 g/dL (6.4-8.2)
[2020-09-02] MEDS: IPRATROPIUM BROM 0.5 MG/2.5ML INH SOL NEB SCH ×3 (05:47→22:35)
[2020-09-02] MEDS: ALBUTEROL SULF 2.5 MG/0.5ML(0.5%) NEB SOLN NEB SCH ×3 (05:47→22:35)
--- NOTE | 2020-09-02 05:52 | NUR ---
AM CARE PATIENT GIVEN FULL BED BATH USING CHG WIPES. COMPLETE LINEN AND GOWN CHANGE ALSO GIVEN,. SKIN REASSESSED AT THIS TIME, NO CHANGES NOTED.
[2020-09-02] MEDS: LEVOTHYROXINE SODIUM 25 MCG TAB PO SCH (06:20)
--- NOTE | 2020-09-02 06:58 | NUR ---
CLOSING PATIENT RESTING IN BED, CONNECTED TO CONTINUOUS BEDSIDE MONITORS. PATIENT IS LIGHTLY SEDATED ON VERSED, PENDING CPAP TRIAL TODAY. WILL ENDORSE CARE TO AM SHIFT RN.
--- NOTE | 2020-09-02 07:00 | NUR ---
Received report from Torrie VILLARREAL Assumed care of patient. Patient remains sedated on Versed 6 mg and mechanically ventillated, settings remain unchanged. Patient easily arousable, moving all extremities. Plan is to CPAP today at 1000. Will continue to monitor.
--- NOTE | 2020-09-02 07:30 | NUR ---
Initial Contact Patient opens eyes, following commands. RN discussed with patient plan of care today regarding CPAP, unit orientation, diagnosis. Patient calm, nodding yes/no.
[2020-09-02] MEDS: DOXYCYCLINE 100MG/250ML 250 ML IV SCH ×2 (09:35→21:30)
[2020-09-02] MEDS: DexAMETHasone SOD PHOS 10MG/1ML VIAL INJ IV SCH (09:36)
[2020-09-02] MEDS: PANTOPRAZOLE 40 MG/10 ML VIAL INJ IV SCH (09:36)
[2020-09-02] MEDS: ZINC SULFATE 220mg CAP or TAB PO SCH (09:36)
[2020-09-02] MEDS: CHOLECALCIFEROL (VITD3) 2,000 UNIT CAP PO SCH (09:36)
[2020-09-02] MEDS: ASCORBIC ACID 1,000 MG TAB PO SCH (09:37)
--- NOTE | 2020-09-02 09:45 | NUR ---
RN bedside Turned TV on for patient, oral care, repositioning.
--- NOTE | 2020-09-02 10:02 | NUR ---
Dr. Veliz called unit Updated on status, and ABG results given over the phone. Will call him after patient CPAP's with ABG results.
--- NOTE | 2020-09-02 10:50 | NUR ---
Respiratory note: PT PLACED ON CPAP TRIAL. PS 8, CPAP 5, FI02 30%. PROCEDURE AND TEST EXPLAINED AND PT NODDED WITH UNDERSTANDING.WILL CONTINUE TO MONITOR.
--- NOTE | 2020-09-02 10:53 | NUR ---
RT bedside RN turned off sedation. Patient suctioned ETT and orally. Patient mittens taken off, patient repositioned.
--- NOTE | 2020-09-02 11:02 | NUR ---
RN & RT bedside Patient started on CPAP, intial RR is increased. RN to cross country and track and field coach and calm patient.
--- NOTE | 2020-09-02 11:15 | NUR ---
Nutrition Followup Note Wt: 51.0 kg Pt is intubated sedated, in isolation now for COVID. Pt is currently NPO d/t pt scheduled for CPAP trial today. Est energy needs 0916-3681 kcal (30-35 kcal/kg BW 50.9kg) Est protein needs 40-51g (0.8-1g/kg BW 50.9kg) Will reassess prn. Labs: BUN 35 H, CA 8.0 L ALB 2.8 L, GLU 139 H BM: Pt had NO BM today per RN note Skin: BS 10 high risk, full details in care professionals note. PES: Altered nutrition related lab values r.t current chronic medical condition aeb elev creat hypocalcemia, hyperglycemia Comments: Will continue to monitor NPO status, skin status. F/u high 2-3 days Rec: 1) Consider EN support with Jevity 1.2 @ 60 ml/hr per MD approval. 2) Advance diet as medically feasible 4) Refer to CDE on DC 5) Continue current plan of care
--- NOTE | 2020-09-02 11:28 | NUR ---
RN bedside Patient remains on CPAP with coaching her RR decreases. Patient follows simple commands, hands are swollen and left PIV 22g removed d/t oozing.
--- NOTE | 2020-09-02 12:12 | NUR ---
Respiratory note: PT CPAP TRIAL WEANING PARAMETERS WERE POOR PATIENT EFFORT. PT SEEMS MORE TIRED THEN WHEN TRIAL STARTED. VC 300, NIF -18, LEAK 250, RSBI 100. WEANING PARAMETERS AAND POST ABG CALLED TO DR. CHOWDHURY. PER DR CHOWDHURY PLACE PT BACK ON PREVIOUS SETTINGS AND IF PATIENT IS MORE ALERT LATER OK FOR CPAP TRIAL. RN INFORMED.
--- NOTE | 2020-09-02 12:15 | NUR ---
RN bedside Patient put back on AC mode after CPAP trial, patient needs to awaken more and have pain control and then we will try again. Patient follows commands, still drowsy and moving around in the bed. Dr. Torres bedside. Patient opening eyes, following commands. Plan is to administer pain medication as needed and CPAP again.
--- NOTE | 2020-09-02 13:48 | NUR ---
Patient back on CPAP Patient more awake at this time. RT bedside, CPAP initiated again.
[2020-09-02] MEDS: MORPHINE SULF INJ 2 MG/ML SYRINGE 1ML IV PRN ×2 (14:05→17:11)
--- NOTE | 2020-09-02 14:05 | NUR ---
RN bedside Patient back on CPAP, given Morphiine IV for restlessness and pain in low back and throat.
--- NOTE | 2020-09-02 14:30 | NUR ---
RN bedside Patient back on CPAP.
--- NOTE | 2020-09-02 16:35 | NUR ---
Patient extubated Patient extubated at 1635 , on High Flow 40/40, calm, following commands. Patient teaching regarding cough, swallow and no talking.
[2020-09-02] MEDS: hydrALAZINE HCL 20 MG/ML VL IV PRN (16:57)
[2020-09-02] MEDS: REMDESIVIR 100mg in NS 230ml DAILYx4DAYS (NO VENT) IV SCH (16:58)
--- NOTE | 2020-09-02 17:16 | NUR ---
Dr. Torres called Notified that patient was extubated, discussed new orders. Because patient is a pain patient, okay to start on pain control medications. Hydralyzine PRN for hypertension.
--- NOTE | 2020-09-02 19:30 | NUR ---
Opening Shift Note: Neuro: A&Ox4, resting in supine in bed; unable to speak in a normal tone related to sore throat; moves all extremities with mild weakness; bedrest; dry cough present. Cardio: NSR 90s to ST 110s; SBPs 120s-150s; pulses all palpable; no edema noted. Resp: patient was originally intubated on 08/29/20 on telemetry unit and transferred to ICU shortly after; patient was extubated today at 1635; anterior lung sounds diminished throughout; currently on high flow 40L at 40% FiO2. GI: NPO; BS present; last BM per report/chart 08/31/20. Skin: intact, no open wounds. IV: right wrist 20 g TKO/ABX inserted on 08/25/20. Positive COVID; all precautions in place per protocol. Patient has been getting the Remdesivir daily; patient also received one unit of PRBCs on 08/27/20; one unit of Conv. plasma on 08/31/20. Pending CMP/CXR in AM. Will continue to perform oral care/reposition/and round prn.
[2020-09-03] VITALS (43 sets, daily range): BP systolic 114–174; BP diastolic 50–85
[2020-09-03] MEDS: MORPHINE SULF INJ 2 MG/ML SYRINGE 1ML IV PRN (02:15)
[2020-09-03] MEDS: hydrALAZINE HCL 20 MG/ML VL IV PRN ×2 (02:15→18:31)
--- NOTE | 2020-09-03 02:15 | NUR ---
High blood pressure: 10 mg hydralazine IVP given for BP 161/76 per order.
[2020-09-03 04:36] LABS: Potassium 3.5 mmol/L (3.5-5.1)
[2020-09-03 04:41] LABS: BUN/Creatinine Ratio 44.6; Bilirubin, Total 0.6 mg/dL (0.2-1.0); Calcium 8.5 mg/dL (8.5-10.1); Total Protein 7.3 g/dL (6.4-8.2)
[2020-09-03] MEDS: IPRATROPIUM BROM 0.5 MG/2.5ML INH SOL NEB SCH ×4 (06:14→22:07)
[2020-09-03] MEDS: ALBUTEROL SULF 2.5 MG/0.5ML(0.5%) NEB SOLN NEB SCH ×4 (06:14→22:07)
[2020-09-03] MEDS: LEVOTHYROXINE SODIUM 25 MCG TAB PO SCH (06:18)
--- NOTE | 2020-09-03 07:15 | NUR ---
start of shift Received patient awake and asking for water to moisten her throat, given a few ice chips and patient swallowed without problem, made aware swallow evaluation will be done and agreed, Respiratory therapist in room and assisted to position patient sitting up for neb treatment. Cooperative with staff and alert and calm.
[2020-09-03] MEDS: PANTOPRAZOLE 40 MG/10 ML VIAL INJ IV SCH (09:47)
[2020-09-03] MEDS: CHOLECALCIFEROL (VITD3) 2,000 UNIT CAP PO SCH (09:47)
[2020-09-03] MEDS: DexAMETHasone SOD PHOS 10MG/1ML VIAL INJ IV SCH (09:47)
[2020-09-03] MEDS: ASCORBIC ACID 1,000 MG TAB PO SCH (09:48)
[2020-09-03] MEDS: ZINC SULFATE 220mg CAP or TAB PO SCH (09:48)
[2020-09-03] MEDS: DOXYCYCLINE 100MG/250ML 250 ML IV SCH ×2 (09:48→21:46)
[2020-09-03 10:11] LABS: Eosinophils # (auto) 0 10 ^3/uL (0-0.8); Monocytes # (auto) 1.2 10 ^3/uL (0-1.3); Monocytes % (auto) 6.5 % (0.0-12.0); Red Blood Cells 4.51 10^6/uL (4.0-5.20); White Blood Cell 18.4 10^3/uL (4.4-10.8)
[2020-09-03 10:12] LABS: Basophils # (auto) 0.1 10 ^3/uL (0-0.2); Basophils % (auto) 0.3 % (0.0-2.0); Hematocrit 35.1 % (36.0-46.0); Hemoglobin 10.7 g/dL (12.2-16.2); Lymphocytes # (auto) 1.8 10 ^3/uL (0.4-5.4); Mean Corpuscular Hemoglobin 23.7 pg (28.0-32.0); Mean Corpuscular Hgb Conc. 30.5 g/dL (32.0-36.0); Mean Corpuscular Volume 77.7 fL (80.0-100.0); Neutrophils # (auto) 15.3 10 ^3/uL (1.6-8.6); Neutrophils % (auto) 83.2 % (37.0-80.0); Nucleated Red Blood Cells % 0.4 %; Platelet Count (auto) 226 10^3/uL (140-450); Red Cell Distribution Width 19.7 % (11.8-14.3)
--- NOTE | 2020-09-03 11:30 | NUR ---
RN Notes Patient seen by Dr. Torres and fed by same, patient ok to eat meals and doctor ordered mechanical soft diet. patient being transferred to telemetry floor, room assignment noted as 235. Report called to Cyndi VILLARREAL to accept patient on telemetry floor. Patient prepared for transfer.
--- NOTE | 2020-09-03 11:30 | NUR ---
Respiratory note: PT TAKEN OFF HIGH FLOW AND PLACED ON 2 LPM NC. PT IS TOLERATING WELL. PT IS AWAKE ALERT AND RESPONSIVE. PT IN NO DISTRESS AT THIS TIME. SP02 98%. RN INFORMED. WILL CONTINUE TO MONITOR.
--- NOTE | 2020-09-03 11:47 | NUR ---
Report received from ICU nurse Nisa.
--- NOTE | 2020-09-03 11:50 | NUR ---
Transfer Notes Patient placed on telelmetry monitor, O2 at 2 l/min via portable O2 tank, mask on and covered, to room 235 via bed with senior network security architect, transfered to another bed without problem, right hand iv saline locked.
--- NOTE | 2020-09-03 12:00 | NUR ---
Resumed care of patient, room 235 Patient alert and orientedx4, no c/o pain no /s of distress/sob noted/stated. VS:T 98.1, HR124, RR20, Spo2 84% on 4L NC. Bed at lowest locked position and call light within reach.
--- NOTE | 2020-09-03 14:00 | NUR ---
Respiratory note: PT MOVED FROM ICU TO EAST. PT SCHEDULED MED NEB NOT GIVEN DUE TO THERAPIST NOT AVAILABLE. MDI'S ALSO NOT SEEN.
--- NOTE | 2020-09-03 15:46 | NUR ---
SWALLOW EVALUATED. PATIENT HAS DENTURES. ABLE TO FOLLOW COMMANDS. PATIENT ABLE TO TOLERATE MECHANICAL SOFT DIET TEXTURE WITH THIN LIQUIDS WITH NO OVERT SIGNS OR SYMPTOMS OF ASPIRATION. NURSING NOTIFIED.
--- NOTE | 2020-09-03 15:54 | NUR ---
SWALLOW EVALUATION COMPLETED.
[2020-09-03] MEDS: REMDESIVIR 100mg in NS 230ml DAILYx4DAYS (NO VENT) IV SCH (17:18)
--- NOTE | 2020-09-03 17:25 | NUR ---
Started Remdesivir, per MD orders. Vs:T97.6, HR, 86 RR19, BP 147/72 patient is tolerating well, no s/s of distress/sob noted/stated. Will continue to monitor. Addendum: 09/03/20 at 1911 by Josiane Sage RN 0 Remdesivir completed. BP 155/79, no s/s of distress/sob noted/stated. Will continue to monitor.
[2020-09-03] MEDS: FERROUS SULFATE 325 MG TAB PO SCH (18:30)
--- NOTE | 2020-09-03 19:12 | NUR ---
IV noted to start leaking, patient states, "no pain". No swelling/redness noted. Will [id number] to MULU RN.
--- NOTE | 2020-09-03 19:21 | NUR ---
report given to MULU Sams
--- NOTE | 2020-09-03 19:55 | NUR ---
Opening Shift Note Assumed care of patient, awake and alert. No S/S of distress/SOB or pain. Instructed on POC and to call for assist PRN, will continue to monitor for changes Q1hr and PRN.
--- NOTE | 2020-09-03 21:15 | NUR ---
RW IV removal IV leaking. IV DC'd with clean sterile technique, catheter fully intact. Pressure dressing applied to site. Patient tolerated well.
--- NOTE | 2020-09-03 21:20 | NUR ---
IV insertion IV access obtained, via clean sterile technique by inserting 22 gauge catheter at RFA after 2 attempts. IV secured properly. No trauma to site. Patient tolerated well.
[2020-09-04] MEDS: HYDROcodone-ACET 5/325MG TAB PO PRN ×2 (04:27→18:58)
[2020-09-04 05:00] VITALS: BP 157/79
[2020-09-04] MEDS: ALBUTEROL SULF 2.5 MG/0.5ML(0.5%) NEB SOLN NEB SCH ×3 (05:47→23:15)
[2020-09-04] MEDS: IPRATROPIUM BROM 0.5 MG/2.5ML INH SOL NEB SCH ×3 (05:47→23:15)
[2020-09-04 06:01] LABS: Mean Corpuscular Hemoglobin 23.9 pg (28.0-32.0)
[2020-09-04 06:05] LABS: Hematocrit 32.4 % (36.0-46.0); Platelet Count (auto) 189 10^3/uL (140-450); White Blood Cell 16.4 10^3/uL (4.4-10.8)
[2020-09-04 06:15] LABS: Band Neutrophils % (manual) 0; Basophils % (manual) 0 (0.0-2.0); Blast Cells 0; Eosinophils % (manual) 0 (0-7); Metamyelocytes % 0; Myelocytes % 0; Promyelocytes % 0; Reactive Lymphocytes 0
[2020-09-04 06:21] LABS: Potassium 3.5 mmol/L (3.5-5.1)
[2020-09-04] MEDS: LEVOTHYROXINE SODIUM 25 MCG TAB PO SCH (06:22)
[2020-09-04 06:29] LABS: Albumin 2.8 g/dL (3.4-5.0); BUN/Creatinine Ratio 53.3; Bilirubin, Total 0.7 mg/dL (0.2-1.0); Calcium 8.4 mg/dL (8.5-10.1); Total Protein 6.4 g/dL (6.4-8.2)
[2020-09-04 07:42] LABS: Lymphocytes % (manual) 3 (10.0-50.0); Monocytes % (manual) 2 (0-12)
[2020-09-04] MEDS: DexAMETHasone SOD PHOS 10MG/1ML VIAL INJ IV SCH (08:24)
[2020-09-04] MEDS: FERROUS SULFATE 325 MG TAB PO SCH ×2 (08:24→18:00)
[2020-09-04] MEDS: DOXYCYCLINE 100MG/250ML 250 ML IV SCH (08:24)
[2020-09-04] MEDS: PANTOPRAZOLE 40 MG/10 ML VIAL INJ IV SCH (08:25)
[2020-09-04] MEDS: ZINC SULFATE 220mg CAP or TAB PO SCH (08:25)
[2020-09-04] MEDS: CHOLECALCIFEROL (VITD3) 2,000 UNIT CAP PO SCH (08:25)
[2020-09-04] MEDS: ASCORBIC ACID 1,000 MG TAB PO SCH (08:25)
[2020-09-04 09:15] VITALS: BP 152/81
[2020-09-04] MEDS: DOXYCYCLINE 100 MG TAB/CAP PO SCH ×2 (10:00→22:06)
[2020-09-04] MEDS: PANTOPRAZOLE 40 MG TAB PO SCH (10:00)
[2020-09-04 13:00] VITALS: BP 160/83
--- NOTE | 2020-09-04 15:08 | NUR ---
Nutrition Followup Note Wt: 51.0 kg Pt is s/p extubation, pt is also s/p swallow eval with diet advanced to [facility] soft. Pt po intake has been poor and sporadic d/t to current medical condition. Consider adding Ensure Enlive TID Est energy needs [id number] kcal (30-35 kcal/kg BW 50.9kg) Est protein needs 40-51g (0.8-1g/kg BW 50.9kg) Will reassess prn. Labs: BUN 37H, Ca 8.4L, Alb 2.8L BM: Pt had NO BM today per RN note Skin: BS 17 mod risk, full details in special needs caregiver note. PES: Altered nutrition related lab values r.t current chronic medical condition aeb elev creat hypocalcemia, hyperglycemia Comments: Will continue to monitor po intake, skin status. F/u mod 3-5 days Rec: 1) Consider adding Ensure Enlive 1 carton TID 2) Continue current plan of care
--- NOTE | 2020-09-04 16:00 | NUR ---
Singer catheter dc'd Order to discontinue Singer catheter. Singer discontinued with clean technique following deflation of balloon. Patient tolerated well with no complaints of pain. Continue care.
[2020-09-04 17:00] VITALS: BP 144/80
[2020-09-04] MEDS: REMDESIVIR 100mg in NS 230ml DAILYx4DAYS (NO VENT) IV SCH (17:30)
--- NOTE | 2020-09-04 17:30 | NUR ---
Started Remdesivir, per MD orders. Vs:T98.2, HR, 94bpm RR20, BP 144/80 patient is tolerating well, no s/s of distress/sob noted/stated. Will continue to monitor. Addendum: 09/04/20 at 1812 by Josiane Sage RN 1750 BP 160/91, HR 90bpm Addendum: 09/04/20 at 1851 by Josiane Sage RN Remdesivir infusion ended. Bp. 177/88bpm, Hr 92bpm. patient tolerated well
--- NOTE | 2020-09-04 18:00 | NUR ---
Run of SVT Per tele biological technical officer, patient had a run of SVT. Patient shows no s/s of distress noted. No c/o pain, no c/o dizziness. Patient is alert and orientedx4. Will continue to monitor. Francie Hospitalist, awaiting call back. Addendum: 09/04/20 at 1825 by Josiane Sage RN MD informed/aware. orders received for Metoprolol 1.25mg IV push Q6HR PRN if HR >140bpm.
[2020-09-04] MEDS ORDERED: METOPROLOL TARTRATE 1MG/1ML-5ML VIAL IV PRN (18:30)
--- NOTE | 2020-09-04 18:51 | NUR ---
elevated BP Bp. 177/88bpm, Hr 92bpm, no s/s of distress/noted/stated. will medicate per MD orders.
[2020-09-04 18:52] VITALS: BP 144/80
[2020-09-04] MEDS: hydrALAZINE HCL 20 MG/ML VL IV PRN (18:58)
--- NOTE | 2020-09-04 19:09 | NUR ---
Closing shift note Patient is comfortably resting in bed, no s/s of distress/noted/stated, on 4L NC. Will endorse care endorsed to NOC RN
[2020-09-04 22:00] VITALS: BP 156/81
[2020-09-05 05:00] VITALS: BP 148/70
[2020-09-05] MEDS: LEVOTHYROXINE SODIUM 25 MCG TAB PO SCH (06:22)
[2020-09-05] MEDS: ALBUTEROL SULF 2.5 MG/0.5ML(0.5%) NEB SOLN NEB SCH (06:51)
[2020-09-05] MEDS: IPRATROPIUM BROM 0.5 MG/2.5ML INH SOL NEB SCH (06:51)
[2020-09-05 09:00] VITALS: BP 142/70
[2020-09-05] MEDS: PANTOPRAZOLE 40 MG TAB PO SCH (09:58)
[2020-09-05] MEDS: FERROUS SULFATE 325 MG TAB PO SCH ×2 (09:58→17:32)
[2020-09-05] MEDS: DexAMETHasone SOD PHOS 10MG/1ML VIAL INJ IV SCH (09:58)
[2020-09-05] MEDS: DOXYCYCLINE 100 MG TAB/CAP PO SCH ×2 (09:58→20:50)
[2020-09-05] MEDS: CHOLECALCIFEROL (VITD3) 2,000 UNIT CAP PO SCH (09:58)
[2020-09-05] MEDS: ASCORBIC ACID 1,000 MG TAB PO SCH (09:58)
[2020-09-05] MEDS: ZINC SULFATE 220mg CAP or TAB PO SCH (09:59)
[2020-09-05] MEDS: HYDROcodone-ACET 5/325MG TAB PO PRN ×2 (11:55→20:50)
[2020-09-05 13:00] VITALS: BP_SYST 144; BP_SYST 168; BP_DIAS 84
[2020-09-05] MEDS: ALBUTEROL SULF HFA 90MCG INH 200DOSE IN SCH ×2 (14:25→20:18)
--- NOTE | 2020-09-05 16:10 | NUR ---
WOUND CARE NOTE: Wound care in to see patient for skin integrity monitoring. Patient has been extubated and now in [facility] unit. Patient is awake, alert, oriented, sitting at side of bed in Rm. 235. She's on O2 2L via NC. Patient is in no stated pain at this time. Patient is ambulatory to bathroom and self turning and repositioning. Her John score is 17. Patient able to stand up for skin assessment. Patient remain wound free. Left patient seated at side of bed. Call de la torre within reach. RECOMMENDATION: Continuation of all wound care orders MD prescribed, continue with skin/wound preventative plan of care,continue monitoring by wound care while patient is hospitalized. Addendum: 09/05/20 at 1706 by Carole Ross RN Amended: Links added.
[2020-09-05 17:00] VITALS: BP 125/65
--- NOTE | 2020-09-05 20:00 | NUR ---
Opening Shift Note Assumed care of patient, awake and alert x4. Patient denies pain or shortness of breath at this time. No sign/symptoms of distress noted or verbalized at this time. Instructed on plan of care and encouraged patient to call for assistance as needed, patient verbalized understanding. Bed is locked in lowest position, side rails x 2 are up, call light is within reach.
[2020-09-05] MEDS: BUDESONIDE (INHALATION) 180 MCG IH IN SCH (20:18)
[2020-09-05 22:00] VITALS: BP 138/68
[2020-09-06 05:00] VITALS: BP 132/58
[2020-09-06] MEDS: LEVOTHYROXINE SODIUM 25 MCG TAB PO SCH (06:05)
[2020-09-06] MEDS: ALBUTEROL SULF HFA 90MCG INH 200DOSE IN SCH (07:18)
[2020-09-06] MEDS: BUDESONIDE (INHALATION) 180 MCG IH IN SCH (07:18)
[2020-09-06] MEDS ORDERED: ZINC220T6 PO (08:30)
[2020-09-06] MEDS ORDERED: CHOL1CAP47 PO (08:30)
[2020-09-06] MEDS ORDERED: ASCO10003 PO (08:30)
[2020-09-06] MEDS ORDERED: METH4PAK PO (08:30)
[2020-09-06] MEDS ORDERED: FER325T PO (08:30)
[2020-09-06] MEDS ORDERED: PANT40T PO (08:30)
[2020-09-06 08:39] VITALS: BP 128/71
[2020-09-06 08:47] VITALS: BP 125/65
[2020-09-06] MEDS: FERROUS SULFATE 325 MG TAB PO SCH (08:54)
[2020-09-06] MEDS: DexAMETHasone SOD PHOS 10MG/1ML VIAL INJ IV SCH (09:02)
[2020-09-06] MEDS: DOXYCYCLINE 100 MG TAB/CAP PO SCH (09:14)
[2020-09-06] MEDS: CHOLECALCIFEROL (VITD3) 2,000 UNIT CAP PO SCH (09:14)
[2020-09-06] MEDS: ASCORBIC ACID 1,000 MG TAB PO SCH (09:14)
[2020-09-06] MEDS: PANTOPRAZOLE 40 MG TAB PO SCH (09:14)
[2020-09-06] MEDS: ZINC SULFATE 220mg CAP or TAB PO SCH (09:14)
--- NOTE | 2020-09-06 10:15 | NUR ---
Discharge instructions given as ordered. Encourage to follow up with PMD as instructed. All questions and concerns addressed. Patient verbalized understanding. Medication reconciliation form completed and copy given to patient. IV removed with catheter intact, pressure dressing applied . Telemetry unit returned to ICU. Patient taken to vehicle via wheelchair with all personal belongings, accompanied by staff and family member. No distress noted at time of departure.
== END 2020-09-06 10:15 | disposition home or self-care (01) | DRG 208 ==
LOC: ER 20:52 → TELE 20:53 → TELE-WESTW 08-26 18:03 → ICU WEST 08-29 22:37 → TELE-EAST 09-03 13:50
PROVIDERS: ADMIT Nurse Practitioner; ATTEND Internal Medicine
PROC: 30233N1 Transfusion of Nonautologous Red Blood Cells into Peripheral Vein, Percutaneous Approach (ICD-10-PCS; principal; 2020-08-27)
PROC: XW033E5 Introduction of Remdesivir Anti-infective into Peripheral Vein, Percutaneous Approach, New Technology Group 5 (ICD-10-PCS; 2020-08-31)
PROC: XW13325 Transfusion of Convalescent Plasma (Nonautologous) into Peripheral Vein, Percutaneous Approach, New Technology Group 5 (ICD-10-PCS; 2020-08-31)
PROC: 5A1945Z Respiratory Ventilation, 24-96 Consecutive Hours (ICD-10-PCS; 2020-09-01)
PROC: 0BH17EZ Insertion of Endotracheal Airway into Trachea, Via Natural or Artificial Opening (ICD-10-PCS; 2020-09-01)
PROC: XW033E5 Introduction of Remdesivir Anti-infective into Peripheral Vein, Percutaneous Approach, New Technology Group 5 (ICD-10-PCS; 2020-09-04)
DX: U07.1 COVID-19 (principal); N17.0 Acute kidney failure with tubular necrosis; J12.89 Other viral pneumonia; J15.211 Pneumonia due to Methicillin susceptible Staphylococcus aureus; D65 Disseminated intravascular coagulation [defibrination syndrome]; J96.21 Acute and chronic respiratory failure with hypoxia; S32.020A Wedge compression fracture of second lumbar vertebra, initial encounter for closed fracture; J44.1 Chronic obstructive pulmonary disease with (acute) exacerbation; J44.0 Chronic obstructive pulmonary disease with (acute) lower respiratory infection; M48.061 Spinal stenosis, lumbar region without neurogenic claudication; I10 Essential (primary) hypertension; E78.5 Hyperlipidemia, unspecified; M81.0 Age-related osteoporosis without current pathological fracture; D50.9 Iron deficiency anemia, unspecified; E78.00 Pure hypercholesterolemia, unspecified; G89.29 Other chronic pain; I48.0 Paroxysmal atrial fibrillation; I70.0 Atherosclerosis of aorta; M48.04 Spinal stenosis, thoracic region; Z91.041 Radiographic dye allergy status; E03.9 Hypothyroidism, unspecified; Z90.49 Acquired absence of other specified parts of digestive tract; Z79.899 Other long term (current) drug therapy
CPT/HCPCS: 36415; 36600; 71045; 72100; 72131; 76775; 80048; 80053; 81001; 82270; 82728; 82805; 82962; 83540; 83550; 83605; 83615; 83735; 84100; 84443; 84484; 85007; 85014; 85018; 85025; 85027; 85379; 85610; 85730; 86141; 86850; 86900; 86901; 86920; 87070; 87077; 87081; 87186; 87205; 92610; 93005; 94002; 94003; 94640; 97110; 97116; 97530; C9113; G0378; J0330; J1100; J2250; J2405; J2543; J3490; J7060; P9047

== ENCOUNTER → 2020-09-18 | Outpatient (CLI) | payer OTHER, MEDICAID ==
[~2020-09-18] MED LIST changes: +ASCO10003 PO; +CHOL1CAP47 PO; +FER325T PO; +METH4PAK PO; +PANT40T PO; +UMEC1AER INH; +ZINC220T6 PO
== END | disposition home or self-care (01) ==
LOC: RT 15:52
PROVIDERS: ATTEND Internal Medicine
DX: J44.9 Chronic obstructive pulmonary disease, unspecified (principal); Z91.041 Radiographic dye allergy status; Z98.890 Other specified postprocedural states; Z79.899 Other long term (current) drug therapy
CPT/HCPCS: 36600; 82805

== ENCOUNTER → 2020-12-03 | Outpatient (CLI) | payer OTHER, MEDICAID ==
[~2020-12-03] MED LIST changes: +AMLO-496 PO; -AMLO10TA13 PO
[2020-12-03 09:17] LABS: Basophils # (auto) 0.1 10 ^3/uL (0-0.2); Mean Corpuscular Hemoglobin 23.3 pg (28.0-32.0); Nucleated Red Blood Cells % 0.1 %
[2020-12-03 09:18] LABS: Basophils % (auto) 0.6 % (0.0-2.0); Eosinophils # (auto) 1.6 10 ^3/uL (0-0.8); Eosinophils % (auto) 14.7 % (0.0-7.0); Hematocrit 37.2 % (36.0-46.0); Hemoglobin 11.6 g/dL (12.2-16.2); Lymphocytes # (auto) 4.7 10 ^3/uL (0.4-5.4); Lymphocytes % (auto) 42.4 % (10.0-50.0); Mean Corpuscular Hgb Conc. 31.2 g/dL (32.0-36.0); Mean Corpuscular Volume 74.6 fL (80.0-100.0); Monocytes # (auto) 0.7 10 ^3/uL (0-1.3); Monocytes % (auto) 6.6 % (0.0-12.0); Neutrophils % (auto) 35.7 % (37.0-80.0); Platelet Count (auto) 196 10^3/uL (140-450); Red Blood Cells 4.99 10^6/uL (4.0-5.20); Red Cell Distribution Width 15.6 % (11.8-14.3); White Blood Cell 11.1 10^3/uL (4.4-10.8)
[2020-12-03 10:14] LABS: Potassium 4.5 mmol/L (3.5-5.1)
[2020-12-03 10:19] LABS: Albumin 3.6 g/dL (3.4-5.0); BUN/Creatinine Ratio 26.7; Bilirubin, Total 0.5 mg/dL (0.2-1.0); Calcium 8.6 mg/dL (8.5-10.1)
== END | disposition home or self-care (01) ==
LOC: LAB 09:02
PROVIDERS: ATTEND Internal Medicine
DX: I10 Essential (primary) hypertension (principal); D64.9 Anemia, unspecified
CPT/HCPCS: 36415; 80053; 85025

== ENCOUNTER 2021-09-28 20:24 | Observation (INO) | payer OTHER, MEDICAID ==
[~2021-09-28] VITALS: Ht 30.5 cm; Wt 46.3 kg
[2021-09-28 21:22] VITALS: BP 146/65
[2021-09-29 00:50] LABS: INR 1.05 (0.9-1.15); Partial Thromboplastin Time 25.1 sec (23.6-33.0)
[2021-09-29 01:05] LABS: Basophils # (auto) 0.1 10 ^3/uL (0-0.2); Basophils % (auto) 1.2 % (0.0-2.0); Eosinophils # (auto) 0 10 ^3/uL (0-0.8); Eosinophils % (auto) 0.1 % (0.0-7.0); Hematocrit 27.8 % (36.0-46.0); Hemoglobin 8.3 g/dL (12.2-16.2); Lymphocytes # (auto) 0.5 10 ^3/uL (0.4-5.4); Lymphocytes % (auto) 8.3 % (10.0-50.0); Mean Corpuscular Hemoglobin 21.4 pg (28.0-32.0); Mean Corpuscular Volume 71.4 fL (80.0-100.0); Monocytes # (auto) 0.5 10 ^3/uL (0-1.3); Neutrophils # (auto) 4.8 10 ^3/uL (1.6-8.6); Neutrophils % (auto) 81.4 % (37.0-80.0); Nucleated Red Blood Cells % 0.3 %; Red Blood Cells 3.89 10^6/uL (4.0-5.20); Red Cell Distribution Width 17.3 % (11.8-14.3); White Blood Cell 5.9 10^3/uL (4.4-10.8)
[2021-09-29 01:18] LABS: Albumin 3.1 g/dL (3.4-5.0); BUN/Creatinine Ratio 24.2; Bilirubin, Total 0.3 mg/dL (0.2-1.0); Calcium 8.6 mg/dL (8.5-10.1); Potassium 4.1 mmol/L (3.5-5.1); Total Protein 8.4 g/dL (6.4-8.2)
[2021-09-29 01:58] VITALS: BP 146/65
[2021-09-29] MEDS ORDERED: cloNIDine HCL 0.1 MG TAB PO PRN (04:15)
[2021-09-29] MEDS ORDERED: ACETAMINOPHEN 325 MG TAB PO PRN (04:15)
[2021-09-29] MEDS ORDERED: MORPHINE SULFATE INJECTION 2 MG/ML SYRG IV PRN (04:15)
[2021-09-29] MEDS ORDERED: NITROGLYCERIN 0.4 MG SL TAB SL PRN (04:15)
[2021-09-29] MEDS ORDERED: ALBUTEROL SULF 2.5 MG/0.5ML(0.5%) NEB SOLN NEB PRN (04:15)
[2021-09-29] MEDS ORDERED: ONDANSETRON HCL 4 MG/2 ML VIAL IV PRN (04:15)
[2021-09-29 05:21] VITALS: BP 136/62
[2021-09-29 06:47] LABS: Urine Bacteria NONE SEEN /hpf (None Seen); Urine Blood Negative /uL (Negative); Urine Specific Gravity 1.011 (1.001-1.035); Urine WBC 2 /hpf (0 - 5)
[2021-09-29] MEDS ORDERED: LEVOTHYROXINE SODIUM 25 MCG TAB PO SCH (07:00)
[2021-09-29] MEDS ORDERED: FERROUS SULFATE 325mg EC TAB PO SCH (08:00)
[2021-09-29 09:00] VITALS: BP 148/71
[2021-09-29] MEDS ORDERED: amLODIPine BESYLATE 5 MG TAB PO SCH (10:00)
[2021-09-29] MEDS ORDERED: PANTOPRAZOLE 40 MG TAB PO SCH (10:00)
[2021-09-29] MEDS ORDERED: LOSARTAN POTASSIUM 50 MG TAB PO SCH (10:00)
[2021-09-29] MEDS ORDERED: FUROSEMIDE 40 MG TAB PO SCH (10:00)
[2021-09-29] MEDS ORDERED: ASPirin 81 mg TAB PO SCH (10:00)
[2021-09-29 13:00] VITALS: BP 143/69
[2021-09-29] MEDS ORDERED: FUROSEMIDE 40 MG/4 ML VIAL IV ONE (14:15)
[2021-09-29 15:53] VITALS: BP 143/69
[2021-09-29 16:50] VITALS: BP 131/80
== END 2021-09-29 17:30 | disposition home or self-care (01) ==
LOC: INTOOBSV 22:10 → TELE-CENTR 22:10
PROVIDERS: ADMIT Nurse Practitioner; ATTEND Internal Medicine
DX: J96.20 Acute and chronic respiratory failure, unspecified whether with hypoxia or hypercapnia (principal); I13.0 Hypertensive heart and chronic kidney disease with heart failure and stage 1 through stage 4 chronic kidney disease, or unspecified chronic kidney disease; I50.31 Acute diastolic (congestive) heart failure; N18.9 Chronic kidney disease, unspecified; D63.1 Anemia in chronic kidney disease; J44.1 Chronic obstructive pulmonary disease with (acute) exacerbation; Z86.16 Personal history of COVID-19; Z79.82 Long term (current) use of aspirin
CPT/HCPCS: 36415; 71045; 80053; 81001; 83880; 84484; 85025; 85379; 85610; 85730; 87081; 93306; 96374; G0378; J1940

== ENCOUNTER 2023-05-06 02:47 | Inpatient (IN) | payer MEDICARE, MEDICAID ==
[~2023-05-06] VITALS: Ht 152.4 cm; Wt 45.3 kg
[~2023-05-06 02:47] MED LIST changes: -AMLO-496 PO; +AMLO1TAB23 PO; -LOSA-39; +LOSA100T58
[2023-05-06 04:08] LABS: Eosinophils # (auto) 0.1 10 ^3/uL (0-0.8); Eosinophils % (auto) 0.5 % (0.0-7.0); Nucleated Red Blood Cells % 0.1 %
[2023-05-06 04:11] LABS: Basophils # (auto) 0 10 ^3/uL (0-0.2); Basophils % (auto) 0.3 % (0.0-2.0); Hematocrit 32.9 % (36.0-46.0); Hemoglobin 10.1 g/dL (12.2-16.2); Lymphocytes # (auto) 1.5 10 ^3/uL (0.4-5.4); Lymphocytes % (auto) 10.9 % (10.0-50.0); Mean Corpuscular Hemoglobin 23.5 pg (28.0-32.0); Mean Corpuscular Hgb Conc. 30.7 g/dL (32.0-36.0); Mean Corpuscular Volume 76.6 fL (80.0-100.0); Monocytes # (auto) 1.2 10 ^3/uL (0-1.3); Monocytes % (auto) 8.6 % (0.0-12.0); Neutrophils # (auto) 11.1 10 ^3/uL (1.6-8.6); Neutrophils % (auto) 79.7 % (37.0-80.0); Red Cell Distribution Width 14.9 % (11.8-14.3); White Blood Cell 13.9 10^3/uL (4.4-10.8)
[2023-05-06 04:35] LABS: Potassium 4.3 mmol/L (3.5-5.1)
[2023-05-06 04:40] LABS: Calcium 9.1 mg/dL (8.5-10.1)
[2023-05-06 04:51] LABS: Albumin 3.7 g/dL (3.4-5.0); BUN/Creatinine Ratio 19.8 (10.0-20.0); Bilirubin, Total 0.3 mg/dL (0.2-1.0); Total Protein 8.5 g/dL (6.4-8.2)
[2023-05-06] MEDS ORDERED: HEPARIN SODIUM (PORCINE) 5000 UNITS/ML 1ML VIAL IV ONE (05:30)
[2023-05-06] MEDS: HEPARIN DRIP/D5W 100UNITS/ML 250 ML IV SCH ×2 (06:22→07:37)
[2023-05-06 06:54] LABS: INR 1.04 (0.9-1.15); Partial Thromboplastin Time 27.4 SEC (24.5-34.5)
[2023-05-06 07:05] LABS: Basophils # (auto) 0 10 ^3/uL (0-0.2); Basophils % (auto) 0.4 % (0.0-2.0); Eosinophils # (auto) 0.1 10 ^3/uL (0-0.8); Hemoglobin 9.7 g/dL (12.2-16.2); Monocytes # (auto) 1.1 10 ^3/uL (0-1.3); Nucleated Red Blood Cells % 0.3 %; White Blood Cell 12.2 10^3/uL (4.4-10.8)
[2023-05-06 07:06] LABS: Eosinophils % (auto) 0.5 % (0.0-7.0); Hematocrit 32.7 % (36.0-46.0); Lymphocytes # (auto) 1.7 10 ^3/uL (0.4-5.4); Lymphocytes % (auto) 14.3 % (10.0-50.0); Mean Corpuscular Hemoglobin 23.5 pg (28.0-32.0); Mean Corpuscular Hgb Conc. 29.7 g/dL (32.0-36.0); Monocytes % (auto) 9.4 % (0.0-12.0); Neutrophils # (auto) 9.2 10 ^3/uL (1.6-8.6); Neutrophils % (auto) 75.4 % (37.0-80.0); Red Blood Cells 4.14 10^6/uL (4.0-5.20); Red Cell Distribution Width 14.9 % (11.8-14.3)
[2023-05-06 10:40] LABS: Urine Bacteria NONE SEEN /hpf (None Seen); Urine Blood Negative /uL (Negative); Urine Hyaline Cast FEW /lpf (0 - 2); Urine Specific Gravity 1.013 (1.001-1.035); Urine WBC 3 /hpf (0 - 5)
[2023-05-06] MEDS ORDERED: ONDANSETRON HCL 4 MG/2 ML VIAL IV ONE (12:45)
[2023-05-06] MEDS ORDERED: MORPHINE SULFATE INJ 2 MG/ml SYRG IV ONE (12:45)
[2023-05-06 14:11] LABS: INR 1.05 (0.9-1.15)
[2023-05-06] MEDS ORDERED: HEPARIN DRIP/D5W 100UNITS/ML 250 ML IV SCH (14:45)
[2023-05-06] MEDS ORDERED: DOCUSATE SOD 100 MG CAP PO PRN (15:30)
[2023-05-06] MEDS ORDERED: cloNIDine HCL 0.1 MG TAB PO PRN (15:30)
[2023-05-06] MEDS ORDERED: ALBUTEROL SULF HFA 90MCG INH 200DOSE IN SCH (15:30)
[2023-05-06] MEDS ORDERED: ONDANSETRON HCL 4 MG/2 ML VIAL IV PRN (15:30)
[2023-05-06] MEDS ORDERED: IBANDRONATE SODIUM 150 MG PO SCH (15:30)
[2023-05-06] MEDS: SODIUM CHLORIDE 0.9% 1,000 ML IV SCH ×2 (16:30→23:50)
[2023-05-06 17:23] VITALS: BP 173/70
[2023-05-06] MEDS: MORPHINE SULFATE INJ 2 MG/ml SYRG IV PRN (17:40)
[2023-05-06] MEDS: IPRATROPIUM BROM 0.5 MG/2.5ML INH SOL NEB SCH ×2 (18:45→22:31)
[2023-05-06] MEDS: ALBUTEROL SULF 2.5 MG/0.5ML(0.5%) NEB SOLN NEB SCH ×2 (18:45→22:31)
[2023-05-06] MEDS: cefTRIAXone 1GM/50ML D5W 50 ML IV SCH (19:55)
[2023-05-06] MEDS: amLODIPine BESYLATE 5 MG TAB PO SCH (20:07)
[2023-05-06] MEDS: FERROUS SULFATE 325mg EC TAB PO SCH (20:07)
[2023-05-06 21:27] LABS: INR 1.05 (0.9-1.15)
[2023-05-07] MEDS: MORPHINE SULFATE INJ 2 MG/ml SYRG IV PRN ×3 (00:20→21:56)
[2023-05-07 05:14] LABS: Hematocrit 31.7 % (36.0-46.0); Hemoglobin 9.7 g/dL (12.2-16.2); Mean Corpuscular Hemoglobin 23.3 pg (28.0-32.0); Mean Corpuscular Hgb Conc. 30.5 g/dL (32.0-36.0); Mean Corpuscular Volume 76.4 fL (80.0-100.0); Red Blood Cells 4.15 10^6/uL (4.0-5.20); Red Cell Distribution Width 14.9 % (11.8-14.3); White Blood Cell 12.6 10^3/uL (4.4-10.8)
[2023-05-07 05:23] LABS: Albumin 3.4 g/dL (3.4-5.0); Potassium 4.5 mmol/L (3.5-5.1)
[2023-05-07 05:26] LABS: Band Neutrophils % (manual) 0; Basophils % (manual) 0 (0.0-2.0); Blast Cells 0; Eosinophils % (manual) 0 (0-7); Metamyelocytes % 0; Myelocytes % 0; Promyelocytes % 0; Reactive Lymphocytes 0
[2023-05-07 05:28] LABS: BUN/Creatinine Ratio 16.3 (10.0-20.0); Bilirubin, Total 0.3 mg/dL (0.2-1.0); Total Protein 8.2 g/dL (6.4-8.2)
[2023-05-07 07:42] LABS: Lymphocytes % (manual) 17 (10.0-50.0); Monocytes % (manual) 12 (0-12)
[2023-05-07] MEDS: FERROUS SULFATE 325mg EC TAB PO SCH ×2 (08:42→17:20)
[2023-05-07] MEDS: SODIUM CHLORIDE 0.9% 1,000 ML IV SCH ×2 (08:42→16:35)
[2023-05-07] MEDS: cefTRIAXone 1GM/50ML D5W 50 ML IV SCH (08:42)
[2023-05-07] MEDS: ANORO ELLIPTA PO SCH (10:00)
[2023-05-07] MEDS: ASCORBIC ACID 1,000 MG TAB PO SCH (10:06)
[2023-05-07] MEDS: ZINC SULFATE 220mg CAP or TAB PO SCH (10:06)
[2023-05-07] MEDS: CHOLECALCIFEROL (VITD3) 2,000 UNIT CAP/TAB PO SCH (10:06)
[2023-05-07] MEDS: predniSONE 20 MG TAB PO SCH (10:06)
[2023-05-07] MEDS: ASPirin-EC 81 mg tab PO SCH (10:06)
[2023-05-07] MEDS: LEVOTHYROXINE SODIUM 25 MCG TAB PO SCH (10:06)
[2023-05-07] MEDS: PANTOPRAZOLE 40 MG TAB PO SCH (10:07)
[2023-05-07] MEDS: amLODIPine BESYLATE 5 MG TAB PO SCH (10:08)
[2023-05-07] MEDS: LOSARTAN POTASSIUM 50 MG TAB PO SCH (10:08)
[2023-05-07 10:24] LABS: Cholesterol 177 mg/dL (< 200); HDL Cholesterol 86 mg/dL (40-59); LDL Cholesterol 80 mg/dL (< 100); Triglycerides 63 mg/dL (< 150)
[2023-05-08] MEDS: SODIUM CHLORIDE 0.9% 1,000 ML IV SCH ×4 (02:24→19:46)
[2023-05-08] MEDS: IPRATROPIUM BROM 0.5 MG/2.5ML INH SOL NEB PRN (07:53)
[2023-05-08] MEDS: ALBUTEROL SULF 2.5 MG/0.5ML(0.5%) NEB SOLN NEB PRN (07:53)
[2023-05-08] MEDS: FERROUS SULFATE 325mg EC TAB PO SCH ×2 (08:25→17:24)
[2023-05-08] MEDS: cefTRIAXone 1GM/50ML D5W 50 ML IV SCH (08:26)
[2023-05-08] MEDS: ANORO ELLIPTA PO SCH (09:05)
[2023-05-08] MEDS: ASPirin-EC 81 mg tab PO SCH (09:49)
[2023-05-08] MEDS: LOSARTAN POTASSIUM 50 MG TAB PO SCH (09:50)
[2023-05-08] MEDS: predniSONE 20 MG TAB PO SCH (09:50)
[2023-05-08] MEDS: PANTOPRAZOLE 40 MG TAB PO SCH (09:51)
[2023-05-08] MEDS: LEVOTHYROXINE SODIUM 25 MCG TAB PO SCH (09:51)
[2023-05-08] MEDS: ZINC SULFATE 220mg CAP or TAB PO SCH (09:51)
[2023-05-08] MEDS: ASCORBIC ACID 1,000 MG TAB PO SCH (09:51)
[2023-05-08] MEDS: amLODIPine BESYLATE 5 MG TAB PO SCH (09:51)
[2023-05-08] MEDS: CHOLECALCIFEROL (VITD3) 2,000 UNIT CAP/TAB PO SCH (09:54)
[2023-05-08 16:52] VITALS: BP 144/57
[2023-05-08 22:00] VITALS: BP_SYST 154; BP_SYST 158; BP_DIAS 115; BP_DIAS 82; BP_DIAS 92
[2023-05-09 05:00] VITALS: BP_SYST 144; BP_SYST 151; BP_SYST 159; BP_DIAS 66; BP_DIAS 76; BP_DIAS 77
[2023-05-09] MEDS ORDERED: LEVOTHYROXINE SODIUM 25 MCG TAB PO SCH (07:00)
[2023-05-09 07:17] LABS: Alcohol, Urine < 3.0 mg/dL (0-10); Amphetamine Screen, Urine NEGATIVE (NEGATIVE); Barbiturate Scree,Urine NEGATIVE (NEGATIVE); Benzodiazephine Screen, Urine NEGATIVE (NEGATIVE); Cannabinoid Screen, Urine NEGATIVE (NEGATIVE); Cocaine Screen, Urine NEGATIVE (NEGATIVE); Opiate Scree,Urine NEGATIVE (NEGATIVE); Phencyclidine Screen, Urine NEGATIVE (NEGATIVE)
[2023-05-09] MEDS: IPRATROPIUM BROM 0.5 MG/2.5ML INH SOL NEB PRN (07:17)
[2023-05-09] MEDS: ALBUTEROL SULF 2.5 MG/0.5ML(0.5%) NEB SOLN NEB PRN (07:17)
[2023-05-09 08:00] VITALS: BP 151/84
[2023-05-09 08:03] VITALS: BP 158/97
[2023-05-09 08:05] VITALS: BP 140/84
[2023-05-09] MEDS: FERROUS SULFATE 325mg EC TAB PO SCH (08:21)
[2023-05-09] MEDS: cefTRIAXone 1GM/50ML D5W 50 ML IV SCH (08:27)
[2023-05-09] MEDS: predniSONE 20 MG TAB PO SCH (09:42)
[2023-05-09] MEDS: amLODIPine BESYLATE 5 MG TAB PO SCH (09:43)
[2023-05-09] MEDS: ZINC SULFATE 220mg CAP or TAB PO SCH (09:44)
[2023-05-09] MEDS: PANTOPRAZOLE 40 MG TAB PO SCH (09:44)
[2023-05-09] MEDS: CHOLECALCIFEROL (VITD3) 2,000 UNIT CAP/TAB PO SCH (09:44)
[2023-05-09] MEDS: ASPirin-EC 81 mg tab PO SCH (09:46)
[2023-05-09] MEDS: ASCORBIC ACID 1,000 MG TAB PO SCH (09:46)
[2023-05-09] MEDS: LOSARTAN POTASSIUM 50 MG TAB PO SCH (09:46)
[2023-05-09] MEDS: SODIUM CHLORIDE 0.9% 1,000 ML IV SCH (10:10)
[2023-05-09] MEDS ORDERED: LACTULOSE 20Gm/30ML SOLN PO ONE (10:15)
[2023-05-09 12:00] VITALS: BP 149/79
== END 2023-05-09 16:00 | DRG 562 ==
LOC: EDBD 02:47 → ER 02:47 → TELE 15:43 → TELE-CENTR 05-08 14:06
PROVIDERS: ADMIT Nurse Practitioner Family; ATTEND Family Medicine
DX: S92.322A Displaced fracture of second metatarsal bone, left foot, initial encounter for closed fracture (principal); N17.0 Acute kidney failure with tubular necrosis; E87.1 Hypo-osmolality and hyponatremia; J44.1 Chronic obstructive pulmonary disease with (acute) exacerbation; N30.00 Acute cystitis without hematuria; I13.0 Hypertensive heart and chronic kidney disease with heart failure and stage 1 through stage 4 chronic kidney disease, or unspecified chronic kidney disease; S92.332A Displaced fracture of third metatarsal bone, left foot, initial encounter for closed fracture; D64.9 Anemia, unspecified; R55 Syncope and collapse; G89.29 Other chronic pain; N18.9 Chronic kidney disease, unspecified; E78.00 Pure hypercholesterolemia, unspecified; R29.6 Repeated falls; I50.9 Heart failure, unspecified; M54.50 Low back pain, unspecified; E03.9 Hypothyroidism, unspecified; W18.39XA Other fall on same level, initial encounter; Y93.89 Activity, other specified; Z82.49 Family history of ischemic heart disease and other diseases of the circulatory system; Z91.041 Radiographic dye allergy status; Z91.81 History of falling; Y92.89 Other specified places as the place of occurrence of the external cause; Y99.8 Other external cause status
CPT/HCPCS: 36415; 70450; 71250; 72125; 72131; 73630; 74176; 80053; 80061; 80307; 81001; 82962; 83036; 84443; 84484; 85007; 85025; 85027; 85610; 85730; 87081; 87086; 93005; 93306; 93886; 93970; 94640; 96365; 96375; 97110; 97116; 97163; G0378; J0696; J2405